=== PATIENT | male | born 1970 | race Caucasian/White ===

== ENCOUNTER → 2020-10-15 11:55 | Outpatient (BNVA) | payer OTHER, SELFPAY | PROVIDERS: PCP Hospitalist; Visit Provider Nurse Practitioner Family | DX: I48.0 Paroxysmal atrial fibrillation (principal); R06.83 Snoring; I10 Essential (primary) hypertension; G47.30 Sleep apnea, unspecified; F17.200 Nicotine dependence, unspecified, uncomplicated; Z79.899 Other long term (current) drug therapy; Z71.6 Tobacco abuse counseling | CPT/HCPCS: 93005; 99212 ==

== ENCOUNTER → 2020-11-17 | Outpatient (REF) | payer OTHER, SELFPAY ==
--- NOTE | 2020-11-17 11:08 | CA_ITS ---
Acquisition Time: 2020-11-17 11:33:50 Total Exercise Time: 00:10:12 Test Indications: CP, AFIB, HTN Medications: SEE CHART Protocol: TAI Max HR: 162 BPM 94% of Pred: 171 BPM Max BP: 161/086 mmHG Max Work Load: 12.2 METS Exercise stress ECHO total of 10 min 12 sec. Pt tolerated well, denies any anginal sx. METS 12.20 and TAPHR up to 94 %. EKG without arrhythmias, no ischemic changes seen during exercise or in recovery. ECHO images taken at rest and immediately after peak exercise TAPHR achieved. Normotensive response to exercise. Test reviewed with Dr. Nicholson. Referred By: Yuridia Blood Overread By: Mckenzie Loo NP
== END ==
LOC: HO.SL
PROVIDERS: Visit Provider Nurse Practitioner Family
DX: I10 Essential (primary) hypertension (principal); I48.20 Chronic atrial fibrillation, unspecified; R06.83 Snoring; M17.0 Bilateral primary osteoarthritis of knee
CPT/HCPCS: 93350; 95806; Q9957

== ENCOUNTER → 2020-12-17 11:08 | Outpatient (REF) | payer OTHER, SELFPAY ==
--- NOTE | 2020-12-17 11:11 | CA_ITS ---
Acquisition Time: 2020-12-17 11:13:02 Total Exercise Time: 00:10:40 Test Indications: PALPITATIONS Medications: SEE CHART Protocol: TAI Max HR: 171 BPM 100% of Pred: 171 BPM Max BP: 158/084 mmHG Max Work Load: 12.8 METS Exerc ise stress ECHO using Tai protocol, total of 10 min 40 sec. METS 12.80 and TAPHR up to 100 %. Pt tolerated well, denies any anginal sx. EKG with no arrhythmias, no ischemic changes seen during exercise or in recovery. ECHO images taken at rest and immediately at peak HR achieved. Definity contrast used. Normotensive response to exercise. Test reviewed with Dr. Nicholson. Referred By: Yuridia Blood Overread By: Mckenzie Loo NP
== END ==
LOC: HO.CARD 11:08
PROVIDERS: Visit Provider Nurse Practitioner Family
DX: I48.0 Paroxysmal atrial fibrillation (principal)
CPT/HCPCS: 93350; Q9957

== ENCOUNTER → 2021-01-25 11:34 | Outpatient (BNVA) | payer OTHER, SELFPAY | PROVIDERS: PCP Hospitalist; Visit Provider Physician Assistant | DX: K58.9 Irritable bowel syndrome, unspecified (principal); R10.9 Unspecified abdominal pain | CPT/HCPCS: 99202 ==

== ENCOUNTER 2021-05-29 17:14 | Emergency (ER) | payer OTHER, SELFPAY ==
--- NOTE | ~2021-05-29 | XR_ITS ---
EXAMINATION: XR CHEST CLINICAL INFORMATION: Chest pain COMPARISON: 09/03/2019 TECHNIQUE: Frontal view of the chest was obtained. FINDINGS: No significant abnormality is noted involving the heart, lungs, mediastinum, bony thorax or soft tissues. XR/XR chest 1V IMPRESSION: Unremarkable examination.
--- NOTE | 2021-05-29 17:53 | ED.ARRPALP ---
HPI - Arrhythmia/Palpitations General Chief Complaint: Arrhythmia/Palpitations Stated Complaint: Palpitations Time Seen by Provider: 05/29/21 17:53 Source: patient Mode of arrival: ambulatory Limitations: no limitations History of Present Illness HPI narrative: Patient with history of hypertension, ADHD, paroxysmal atrial fibrillation, with history of alcohol abuse comes here for episode of palpitations since 07:00 with dizziness slight chest discomfort blurry vision during episodes of palpitation no shortness of breath no nausea no vomiting patient is on metoprolol 25 mg twice daily, stressed out at home had a verbal argument with his partner today Related Data Previous Rx's Medication Instructions Recorded metoprolol tartrate 25 mg tablet 25 mg PO BID #180 tab 01/04/21 ibuprofen 800 mg tablet 800 mg PO Q8H PRN #90 tab 01/15/21 bisacodyl 5 mg tablet,delayed 10 mg PO ONCE 1 Days #2 tab 01/25/21 release (Dulcolax (bisacodyl)) omeprazole 20 mg capsule,delayed 20 mg PO DAILY #30 cap 01/25/21 release polyethylene glycol 3350 17 238 g PO ONCE 1 Days #238 g 01/25/21 gram/dose oral powder (Miralax) omeprazole 40 mg capsule,delayed 40 mg PO DAILY #30 cap 05/19/21 release Allergies Allergy/AdvReac Type Severity Reaction Status Date / Time No Known Allergies Allergy Verified 01/25/21 11:41 Review of Systems Review of Systems: Yes all other systems are reviewed and are negative COUNT INCLUDES THE [facility] Past Medical History Medical History Abdominal pain ADHD (attention deficit hyperactivity disorder), predominantly hyperactive impulsive type Hypertension, essential Knee abrasion Paroxysmal A-fib Surgical History No pertinent past surgical history Family History Family History Father Medical history unknown Mother Alcoholism Pneumonia Sister No problems noted. 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 Oriented X3. No acute distress. Slightly anxious Eyes: No pallor or icterus ENT: Pharynx normal. Oral Mucosa moist Neck: Normal inspection. Neck supple. CVS: Irregularly irregular heart rate no murmur /gallop Pulses normal. Respiratory: No respiratory distress. Equal air entry bilateral, no wheezing/rales/rhonchi Abdomen: Soft and nontender. Bowel sounds are present, no mass palpable, Skin: Skin warm and dry. Normal skin color. Normal skin turgor. Extremities: No lower extremity edema. No calf tenderness Neuro: Oriented X 3. No motor deficit. Course Reevaluation(s) Reevaluation #1: Patient converted to normal sinus rhythm without giving the 2nd dose of flecainide. Was given only 150 mg of flecainide initially case discussed cardiology Dr. Bharat sandy to discharge patient home advised to follow-up as outpatient Time: 22:25 MDM - Arrhythmia/Palpitations MDM Narrative Medical decision making narrative: Patient will own atrial fibrillation responded to flecainide 150 mg converted to normal sinus rhythm case discussed with patient's wide load escort advised to follow up as outpatient Medical Records Attestation: I reviewed the patient's medical records. Lab Data Attestation: I reviewed the patient's lab results. Result diagrams: 05/29/21 18:42 05/29/21 18:42 Labs: Lab Results 05/29/21 05/29/21 05/29/21 Range/Units 18:42 18:42 18:42 WBC 9.8 (4.8-10.8) X10*3/uL RBC 5.06 (4.60-5.80) X10*6/uL Hgb 15.6 (14.0-18.0) g/dl Hct 45.5 (42-52) % MCV 89.9 (80-98) fL MCH 30.8 (27.0-33.0) pg MCHC 34.3 (31.0-36.0) g/dl RDW 13.2 (11.0-16.0) % Plt Count 216 (160-400) X10*3/uL MPV 10.2 (9.4-12.4) fL Immature Gran % (Auto) 0.5 H (0.0-0.4) % Neut % (Auto) 62.4 (45-73) % Lymph % (Auto) 24.1 (20-40) % [place] % (Auto) 10.4 (2-11) % Eos % (Auto) 2.0 (0-4) % Baso % (Auto) 0.6 (0-2) % Lymph # (Auto) 2.4 (1.2-4.9) X10*3/uL [place] # (Auto) 1.0 (0.1-1.2) X10*3/uL Eos # (Auto) 0.2 (0.0-0.4) X10*3/uL Baso # (Auto) 0.1 (0.0-0.2) X10*3/uL Abs Immat Gran (auto) 0.05 H (0.00-0.03) X10*3/uL Absolute Neuts (auto) 6.1 (2.0-8.3) X10*3/uL Absolute Nucleated RBC 0.000 (0.0-0.012) X10*3/uL Nucleated RBC % (auto) 0.0 (0.0-0.2) /100WBC Sodium 143 (135-145) mmol/L Potassium 4.1 (3.3-5.1) mmol/L Chloride 113 H (96-108) mmol/L Carbon Dioxide 24 (22-29) mmol/L Anion Gap 10 L (12-20) BUN 17 H (9-16) mg/dL Creatinine 0.82 (0.5-1.4) mg/dL Estim Creat Clear Calc 118.2 Estimated GFR > 60 Random Glucose 106 (60-115) mg/dL Calcium 8.5 (8.4-10.2) mg/dL Magnesium 2.2 (1.6-2.6) mg/dL Total Bilirubin 0.5 (0.0-1.0) mg/dL AST 33 (5-37) U/L ALT 39 (0-40) U/L Alkaline Phosphatase 73 (39-117) U/L Troponin I High Sens 6.2 (<3.5-35.0) ng/L B-Natriuretic Peptide 94 (<100) pg/mL Total Protein 5.9 L (6.5-8.0) g/dL Albumin 3.6 (3.5-5.0) g/dL ECG Data Attestation: I personally reviewed and interpreted this ECG as follows: Interpretation: Atrial fibrillation with heart rate 130 beats per minute no acute ST T wave changes no acute ischemia Critical Care Time Critical Care Time Critical Care Time: Yes Total Critical Care Time: 35 Attestation: I spent 35 minutes of critical care, with interventions, assessments, speaking to patient, consultants, and family. Discharge Plan Discharge Clinical Impression: Paroxysmal A-fib Patient Disposition: Home, Self-Care Instructions: A-fib (Atrial Fibrillation) (ED) Additional Instructions: Continue metoprolol daily Start taking baby aspirin daily Avoid caffeine drinks Follow up with your wide load escort next week Prescriptions: No Action metoprolol tartrate 25 mg tablet 25 mg PO BID Qty: 180 RF: 1 ibuprofen 800 mg tablet 800 mg PO Q8H PRN (Reason: for pain) Qty: 90 RF: 5 omeprazole 40 mg capsule,delayed release(DR/EC) 40 mg PO DAILY Qty: 30 RF: 1 bisacodyl [Dulcolax (bisacodyl)] 5 mg tablet,delayed release (DR/EC) 10 mg PO ONCE 1 Days Qty: 2 RF: 0 polyethylene glycol 3350 [Miralax] 17 gram/dose powder 238 g PO ONCE 1 Days Qty: 238 RF: 0 omeprazole 20 mg capsule,delayed release(DR/EC) 20 mg PO DAILY Qty: 30 RF: 5 Interventions: ED Discharge Assessment Last Done: 05/29/21 22:57 Discharge Date/Time: 05/29/21 22:58
[2021-05-29 18:03] VITALS: BP 137/93; PULSE 102; RESP 15; O2SAT 95; BMI 27.1
[2021-05-29 18:48] VITALS: BP 114/60; PULSE 107
[2021-05-29 18:48] LABS: MANUAL DIFF FLAG NO
[2021-05-29] MEDS: Metoprolol Tartrate 5 MG/5 ML VIAL IVPUSH (18:48)
[2021-05-29 18:50] LABS: Basophils Absolute Auto 0.1 X10*3/uL (0.0-0.2); Basophils Percent Auto 0.6 % (0-2); Eosinophils Absolute Auto 0.2 X10*3/uL (0.0-0.4); Hematocrit 45.5 % (42-52); Hemoglobin 15.6 g/dl (14.0-18.0); Imm Gran Abs Auto 0.05 X10*3/uL (0.00-0.03); Imm Gran Pct Auto 0.5 % (0.0-0.4); Lymphocytes Absolute Auto 2.4 X10*3/uL (1.2-4.9); Lymphocytes Percent Auto 24.1 % (20-40); Mean Corpuscular HGB Conc 34.3 g/dl (31.0-36.0); Mean Corpuscular Hemoglobin 30.8 pg (27.0-33.0); Mean Corpuscular Volume 89.9 fL (80-98); Mean Platelet Volume 10.2 fL (9.4-12.4); Monocytes Percent Auto 10.4 % (2-11); Neutrophils Absolute Auto 6.1 X10*3/uL (2.0-8.3); Neutrophils Percent Auto 62.4 % (45-73); Platelet Count 216 X10*3/uL (160-400); Red Blood Count 5.06 X10*6/uL (4.60-5.80); Red Cell Distribution Width 13.2 % (11.0-16.0); White Blood Count 9.8 X10*3/uL (4.8-10.8)
[2021-05-29 19:09] LABS: Alanine Aminotransferase 39 U/L (0-40); Albumin Level 3.6 g/dL (3.5-5.0); Alkaline Phosphatase 73 U/L (39-117); Anion Gap 10 (12-20); Aspartate Amino Transferase 33 U/L (5-37); B Type Natriuretic Peptide 94 pg/mL (<100); Bilirubin Total 0.5 mg/dL (0.0-1.0); Blood Urea Nitrogen 17 mg/dL (9-16); Calcium 8.5 mg/dL (8.4-10.2); Carbon Dioxide 24 mmol/L (22-29); Chloride 113 mmol/L (96-108); Creatinine Clr Calc Pharmacy 118.2; Estimated Glomerular Filt Rate > 60; Glucose Random 106 mg/dL (60-115); Magnesium 2.2 mg/dL (1.6-2.6); Potassium 4.1 mmol/L (3.3-5.1); Sodium 143 mmol/L (135-145); Total Protein 5.9 g/dL (6.5-8.0); Troponin-I High Sensitivity 6.2 ng/L (<3.5-35.0)
[2021-05-29 20:36] VITALS: BP 115/80; PULSE 104
[2021-05-29] MEDS: Flecainide Acetate 50 MG TABLET 150 MG PO (20:36)
[2021-05-29] MEDS: Rivaroxaban 20 MG TABLET PO (20:39)
--- NOTE | 2021-05-29 22:26 | ECG_ITS ---
Test Reason : a-fib Blood Pressure : / mmHG Vent. Rate : 130 BPM Atrial Rate : 000 BPM P-R Int : 000 ms QRS Dur : 090 ms QT Int : 280 ms P-R-T Axes : 000 006 -41 degrees QTc Int : 412 ms Atrial fibrillation with rapid ventricular response ST & T wave abnormality, consider anterolateral ischemia Abnormal ECG No previous ECGs available Referred By: Tino Gibbs Electronically Signed By:YOLA LYON MD
--- NOTE | 2021-05-29 22:46 | PC.NURSE ---
PT CONVERTED TO NSR AFTER 1ST DOSE OF FLECANIDE. PT HAD REPEAT EKG. AND PER MD READY FOR D/C
[2021-05-29 22:57] VITALS: BP 108/68; PULSE 72; RESP 18
== END 2021-05-29 22:58 | disposition home or self-care (01) ==
PROVIDERS: Emergency Provider Internal Medicine; PCP Hospitalist
DX: I48.0 Paroxysmal atrial fibrillation (principal); I10 Essential (primary) hypertension; Z79.899 Other long term (current) drug therapy
CPT/HCPCS: 36415; 71045; 80053; 83735; 83880; 84484; 85025; 93005; 96374; 96375; 99285; 99291

== ENCOUNTER → 2021-06-17 09:07 | Outpatient (BNVA) | payer OTHER, SELFPAY | PROVIDERS: PCP Hospitalist; Referring Provider Hospitalist; Visit Provider Internal Medicine Cardiovascular Disease | DX: I48.0 Paroxysmal atrial fibrillation (principal); I10 Essential (primary) hypertension | CPT/HCPCS: 99212 ==

== ENCOUNTER 2021-10-19 08:41 | Day surgery (SDC) | payer OTHER, SELFPAY ==
[2021-10-19 08:47] VITALS: BMI 35.9
[2021-10-19 08:56] VITALS: BP 123/85; PULSE 67; RESP 16; TEMP 36.5; O2SAT 94
--- NOTE | 2021-10-19 09:05 | P.CONAN_ITS ---
HPI - Anesthesia Eval Consult details Narrative: IBS, Abdominal Pain, Screening [facility] Active Problems Active Problems: All Active Problems (Updated 10/13/21 @ 15:31 by Carmelina Roberts, RN) Arthritis of both knees (Acute) Chronic a-fib (Acute) Sleep apnea, unspecified (Acute) Snoring (Acute) Pes anserinus bursitis of right knee (Acute) Tendinitis of right knee (Acute) Arthritis of both knees (Acute) IBS (irritable bowel syndrome) (Acute) Abdominal pain (Acute) Hypertension, essential (Acute) ADHD (attention deficit hyperactivity disorder), predominantly hyperactive impulsive type (Acute) Paroxysmal A-fib (Acute) Past Medical History Medical History (Updated 10/13/21 @ 15:31 by Carmelina Roberts RN) Abdominal pain ADHD (attention deficit hyperactivity disorder), predominantly hyperactive impulsive type Hypertension, essential Knee abrasion On beta kristie at home TOLU (obstructive sleep apnea) Paroxysmal A-fib Family History Family History (Updated 07/22/21 @ 14:00 by ALEXYS Alanis) Father Medical history unknown Mother Alcoholism Pneumonia Sister No problems noted. Family history of problems with anesthesia: No Surgical History Surgical History (Updated 10/19/21 @ 08:45 by Ingrid Valencia RN) Hx of wisdom tooth extraction No pertinent past surgical history History of Problems with Anesthesia: No Social History Social History Household Members Other:: single, 6 kids Alcohol intake: current Alcohol intake frequency: a few times a month Patient Tobacco Use Status: Current everyday Tobacco user Tobacco use type: Cigarette Cigarettes Per Day: 5 e-Cigarette/Vaping Use: Never Used Use of substances other than those prescribed or required for medical reasons: No Are you DNR?: No Advance Directives: No Advance Directives Information Provided: Yes service: No Current occupational status: employed 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 [employer] Cognitive needs: No Hearing needs: No Vision needs: No Meds Allergies Allergy/AdvReac Type Severity Reaction Status Date / Time No Known Allergies Allergy Verified 10/19/21 08:45 Active Medications: Current Medications Lactated Ringer's (Lr) 1,000 mls @ 50 mls/hr IVCONT .Q20H [facility] Home Medications Medication Instructions Recorded Confirmed Last Taken Type ibuprofen 800 mg tablet 1 tab PO Q8H PRN 10/13/21 10/13/21 Unknown History omeprazole 40 mg capsule,delayed 1 cap PO DAILY 10/13/21 10/13/21 Unknown History release risperidone 1 mg tablet mg PO 10/13/21 Unknown History Exam Exam Date and Time: October 19, [id number] Height,Weight and Vital Signs: Height 6 ft 2 in Weight 127.006 kg Last Vital Signs Temp 97.7 F 10/19/21 08:56 Pulse 67 10/19/21 08:56 Resp 16 10/19/21 08:56 BP 123/85 10/19/21 08:56 Pulse Ox 94 10/19/21 08:56 Airway Mallampati Class: II TM Dist: >3cm Neck ROM: Full Loose/Missing/Broken Teeth: Yes (lower front missing, no loose according to patient) Heart: irreg irreg S1S2 Lungs: cta b/l Assessment and Plan Assessment Anesthesia Assessment: Anesthesia Plan Discussed and Chart Reviewed Final Anesthetic Review Family History of Problems with Anesthesia: No History of Problems with Anesthesia: No NPO: Yes ASA Class: III Final Preanesthetic Review: No Changes in Pt Med Stat, Meds/Allgs Chart Reviewed, Consent Obtained/Reviewed and Anes Risks/Benef Reviewed Patient Risk: Intermediate Procedure Risk: Intermediate Assessment/Block/Sedation in SS: Assess/Block/Sedation-SS Anesthetic Plan Anesthetic Plan: MAC: and Agree w/ Assess. and Plan Disposition: Standard PACU
[2021-10-19] MEDS: Lactated Ringers 1,000 ML 50 ML IVCONT (09:07)
--- NOTE | 2021-10-19 09:41 | P.HPSUR_ITS ---
Pre-Procedural Eval Section A Date of Service: 10/19/21 Section B Chief Complaint: IBS, Abdominal Pain Relevant Family History (Specify if Yes): No Relevant Social History: Tobacco Use (alcohol use) Medical History: Significant History (Abdominal pain ADHD (attention deficit hyperactivity disorder), predominantly hyperactive impulsive type Hypertension, essential Knee abrasion Paroxysmal A-fib) History of Previous Operations: No relevant previous surgery Allergies: Allergies Allergy/AdvReac Type Severity Reaction Status Date / Time No Known Allergies Allergy Verified 10/19/21 08:45 Review of Systems Sugical H&P ROS: Negative: Constitution, Cardiovascular, Respiratory, Neurol ogical, Psychiatric, Hem-Onc, Allergic/Immunologic, Gastrointestinal, Genitourinary, Musculoskeletal, Integumentary, Endocrine and Eyes/Ears/Nose/Throat Exam Surgical H&P Exam: Normal: HEENT, Normal: Heart, Normal: Lungs, Normal: Extremities, Normal: Abdomen, Normal: Skin and Normal: Neurological Plan Diagnosis/Plan: Unchanged I have reviewed the history and physical and performed a pertinent physical examination on my patient. No changes have occurred unless specified.
--- NOTE | 2021-10-19 09:54 | PM.OP ---
Brief Operative Note Date of Service: 10/19/21 Pre-op diagnosis: dyspepsia, altered bowel habits Post-op diagnosis: same Procedure: see op note Surgeon: Sophia Mcpherson MD Anesthesia: MAC Was an Bias Machine Operator Helper used for this Procedure?: No Estimated blood loss (mL): 0 Condition: stable Disposition: PACU
--- NOTE | 2021-10-19 10:03 | P.OP_ITS ---
Operative Note Operative Note Date of Service: 10/19/21 Narrative: Operative Information Procedure Description: EGD, Colonoscopy FLEXIBLE TRANSORAL UPPER GASTROINTESTINAL ENDOSCOPY AND COLONOSCOPY PROCEDURE NOTE UPPER ENDOSCOPY Consent: Indications for the procedure and potential complications of bleeding, perforation, reaction to medications and missed diagnosis were discussed with the patient and informed consent was obtained. Instrument: Olympus GIF H 190 J mid size upper endoscope Monitoring: Vital signs and clinical assessment, continuous EKG monitoring, Pulse oximetry, Carbon Dioxide monitoring and blood pressure monitoring were done throughout the procedure. Procedure: The patient was placed in the left lateral decubitis position and pre-procedure medications were administered and a bite block was placed. The endoscope was inserted into the mouth and advanced under direct vision to the third part of duodenum. A careful inspection was made as the upper endoscope was withdrawn including a retroflexed examination of the proximal stomach; Findings and interventions are described below. Findings: Larynx:normal Esophagus: GE junction at 43 cm, diaphragm hiatus at 43 cm, mild inflammation valdez cardia side, bx taken Stomach: Several erosions in the antrum,. Biopsies were obtained. Grade 2 flap valve on retroflexed examination of the cardia with midl inflammation of cardia. Duodenum: moderate severe erosive duodenitis of bulb, bx taken Intervention: Biopsies as noted above COLONOSCOPY Instrument: Olympus variable stiffness pediatric scope 190L Colonoscopy Monitoring: Vital signs and clinical assessment, continuous EKG monitoring, Pulse oximetry, Carbon Dioxide monitoring and blood pressure monitoring were done throughout the procedure. Colon withdrawal time was 13 minutes. Procedure: The patient was placed in the left lateral decubitis position and pre-procedure medications were administered. After a digital rectal examination of the ano-rectum, the video colonoscope was inserted into the rectum and advanced through the colon to the cecum/TI. The colonoscope was slowly withdrawn in a retrograde panoramic fashion and the colon mucosa was carefully examined including a retroflexed view of the rectum. Findings and interventions are described below. Procedure Difficulty: easy Findings: Terminal Ileum-mild erythema, bx taken Cecum:normal Ascending Colon: normal, bx taken to r/o microscopic colitis, crohns Transverse Colon -normal Descending Colon:normal, bx taken to r/o microscopic colitis Sigmoid Colon: 10 mm sessile polyp removed with cold snare, adenomatous appearing pit pattern, Kudo pit pattern type IIIL Rectum: Retroflexion with moderate sized internal hemorrhoids, grade I Anorectum - normal Colon preparation: Mondamin Bowel Preparation Scale Right colon; 2 Transverse colon: 2 Left colon; 2 (0 = Unprepared colon segment with mucosa not seen due to solid stool that cannot be cleared. 1 = Portion of mucosa of the colon segment seen, but other areas of the colon segment not well seen due to staining, residual stool and/or opaque liquid. 2 = Minor amount of residual staining, small fragments of stool and/or opaque liquid, but mucosa of colon segment seen well. 3 = Entire mucosa of colon segment seen well with no residual staining, small fragments of stool or opaque liquid) Impression and Post Procedure Diagnosis: Endoscopy Findings: erosive gastritis erosive duodenitis Colonoscopy Findings: polyps internal hemorrhoids diverticular disease Plan: Await Pathology results Repeat Colonoscopy in 5-7 years due to polyp removed or earlier if clinically indicated High fiber diet leaflet avoid straining at stool, epsom salts and sitz bath, anusol supps or cream confirm nsaid history, if h pylori pos then treat smoking cessation Above findings were reviewed with the patient and relevant handouts were provided if indicated.
[2021-10-19 10:32] VITALS: BP 114/65; PULSE 79; RESP 18; TEMP 36.4; O2SAT 98
[2021-10-19 10:47] VITALS: BP 114/65; PULSE 78; RESP 18; TEMP 36.1; O2SAT 97
== END 2021-10-19 11:24 | disposition home or self-care (01) ==
PROVIDERS: PCP Hospitalist; Visit Provider Internal Medicine Gastroenterology
PROC: (CPT 45385; principal; 2021-10-19 09:30)
DX: R19.4 Change in bowel habit (principal); K63.5 Polyp of colon; K52.9 Noninfective gastroenteritis and colitis, unspecified; K64.0 First degree hemorrhoids; K29.50 Unspecified chronic gastritis without bleeding; B96.81 Helicobacter pylori [H. pylori] as the cause of diseases classified elsewhere; K29.80 Duodenitis without bleeding; K44.9 Diaphragmatic hernia without obstruction or gangrene; F90.1 Attention-deficit hyperactivity disorder, predominantly hyperactive type; F41.9 Anxiety disorder, unspecified; I10 Essential (primary) hypertension; G47.33 Obstructive sleep apnea (adult) (pediatric); Z79.1 Long term (current) use of non-steroidal anti-inflammatories (NSAID); Z79.899 Other long term (current) drug therapy; F17.210 Nicotine dependence, cigarettes, uncomplicated; I48.0 Paroxysmal atrial fibrillation
CPT/HCPCS: 45385; 45380; 43239; 88305; 88342

== ENCOUNTER → 2021-11-04 09:32 | Outpatient (BNVA) | payer OTHER, SELFPAY | PROVIDERS: PCP Hospitalist; Referring Provider Hospitalist; Visit Provider Physician Assistant | DX: K64.9 Unspecified hemorrhoids (principal); K57.30 Diverticulosis of large intestine without perforation or abscess without bleeding; K63.5 Polyp of colon; A04.8 Other specified bacterial intestinal infections | CPT/HCPCS: 99212 ==

== ENCOUNTER 2021-12-21 14:02 | Outpatient (REF) | payer OTHER, SELFPAY | END 2021-12-21 14:03 | disposition home or self-care (01) | LOC: HO.LNP 14:02 | PROVIDERS: PCP Hospitalist; Referring Provider Hospitalist; Visit Provider Physician Assistant | DX: A04.8 Other specified bacterial intestinal infections (principal) | CPT/HCPCS: 83013; 99211 ==

== ENCOUNTER 2022-03-05 19:27 | Emergency (ER) | payer OTHER, SELFPAY ==
--- NOTE | 2022-03-05 | ECG_ITS ---
Test Reason : PALPITATIONS Blood Pressure : / mmHG Vent. Rate : 091 BPM Atrial Rate : 091 BPM P-R Int : 178 ms QRS Dur : 100 ms QT Int : 344 ms P-R-T Axes : 046 -13 019 degrees QTc Int : 423 ms Normal sinus rhythm with sinus arrhythmia Possible Left atrial enlargement Borderline ECG When compared with ECG of 29-MAY-2021 22:34, ST no longer elevated in Anterior leads Referred By: Generic ED Physician Electronically Signed By:Cristino Taylor
--- NOTE | ~2022-03-05 | XR_ITS ---
EXAMINATION: XR CHEST CLINICAL INFORMATION: Disoriented COMPARISON: Prior chest radiographs, most recently 05/29/2021 TECHNIQUE: AP and lateral radiographs of the chest FINDINGS: No significant abnormality is noted involving the heart, lungs, mediastinum, bony thorax or soft tissues. XR/XR chest 2V IMPRESSION: Unremarkable examination.
--- NOTE | ~2022-03-05 | CT_ITS ---
EXAMINATION: CT HEAD WITHOUT CONTRAST CLINICAL INFORMATION: Dizziness. Disoriented. Head strike COMPARISON: CT TECHNIQUE: Contiguous axial imaging was performed from the skull base to vertex without intravenous administration of contrast. This CT examination was performed using dose optimization techniques as appropriate, variously including the following: *Automated exposure control *Adjustment of mA and/or kV according to patient size (this includes techniques or standardized protocols for targeted exams where dose is matched to indication/reason for exam; i.e. extremities or head) *Use of iterative reconstruction technique DLP: 669 mGy-cm FINDINGS: There is no evidence of acute intracranial hemorrhage or territorial infarction. No abnormal mass effect or midline shift is seen. [place] to white matter differentiation is well preserved. No extra-axial fluid collections are identified. The ventricles are normal in size. There is no abnormal attenuation within the brain parenchyma. There are calcifications along the falx. The osseous structures and soft tissues are normal. The mastoid air cells and visualized portions of the paranasal sinuses are well aerated. CT/CT head/brain wo con IMPRESSION: No acute intracranial pathology.
[2022-03-05 19:30] VITALS: BP 142/115; PULSE 92; RESP 18; TEMP 36.4; O2SAT 95; BMI 38.5
[2022-03-05 19:56] LABS: MANUAL DIFF FLAG NO
--- NOTE | 2022-03-05 19:57 | ED.CHESTPAIN ---
HPI - Chest Pain General Chief Complaint: Chest Pain <MARQUIS Fonseca Last Filed: 03/05/22 20:55> Stated Complaint: ND? dizzy <MARQUIS Fonseca - Last Filed: 03/05/22 20:55> Time Seen by Provider: 03/05/22 19:57 <MARQUIS Fonseca Last Filed: 03/05/22 20:55> Source: patient <MARQUIS Fonseca Last Filed: 03/05/22 20:55> Mode of arrival: ambulatory <MARQUIS Fonseca Last Filed: 03/05/22 20:55> Limitations: no limitations <MARQUIS Fonseca Last Filed: 03/05/22 20:55> History of Present Illness HPI narrative: Patient is a 52 year old male presenting to the emergency department today with feeling as though his heart is racing and intermittent dizziness. Patient states that today, he was out working on his truck and forgot to take his Metoprolol. Patient states that he has episodes of intermittent dizziness and heart racing. Patient states that he has a history of atrial fibrillation for which he takes Metoprolol and Fleccanide, as needed. Patient denies any abdominal pain, nausea, vomiting, fever, chills, blurry vision, double vision, loss of vision, chest pain, difficulty breathing, shortness of breath, back pain, night sweats, pain with urination, increased urinary frequency, increased urinary urgency, blood in [his/her] urine or stool, syncope or a near syncopal episode, bowel incontinence, bladder incontinence, bowel retention, bladder retention, or any other complaints at this time. <MARQUIS Fonseca Last Filed: 03/05/22 20:55> Prior episodes: Yes <MARQUIS Fonseca Last Filed: 03/05/22 20:55> Pain radiation: none <MARQUIS Fonseca Last Filed: 03/05/22 20:55> Relieving factors: nothing <MARQUIS Fonseca Last Filed: 03/05/22 20:55> Exacerbating factors: nothing <MARQUIS Fonseca Last Filed: 03/05/22 20:55> Treatment prior to arrival: none <MARQUIS Fonseca Last Filed: 03/05/22 20:55> Related Data Home Medications: Previous Rx's Medication Instructions Recorded metoprolol succinate 50 mg 50 mg PO DAILY #90 tabs 06/17/21 tablet,extended release 24 hr metronidazole 500 mg tablet 500 mg PO TID 14 days #42 tabs 10/27/21 pantoprazole 20 mg tablet,delayed 20 mg PO BID 2 weeks #28 tabs 10/27/21 release tetracycline 500 mg capsule 500 mg PO Q6H 14 days #56 caps 10/27/21 bismuth subsalicylate 262 mg 2 tab PO QID 14 days #112 tabs 11/04/21 chewable tablet flecainide 100 mg tablet 200 mg PO ONCE PRN Afib #20 tabs 02/11/22 <MARQUIS Fonseca - Last Filed: 03/05/22 20:55> Allergies/Adverse Reactions: Allergies Allergy/AdvReac Type Severity Reaction Status Date / Time No Known Allergies Allergy Verified 12/21/21 15:02 <MARQUIS Fonseca - Last Filed: 03/05/22 20:55> Review of Systems Constitutional: Constitutional: Reports no additional constitutional complaints, Denies chills, Denies fever(s) and Denies night sweats <MARQUIS Fonseca Last Filed: 03/05/22 20:55> Eyes: Eyes: Reports no additional eye complaints, Denies blurry vision, Denies change in vision, Denies diplopia, Denies eye discharge, Denies loss of vision and Denies eye pain <MARQUIS Fonseca Last Filed: 03/05/22 20:55> ENT: Reports dizziness <MARQUIS Fonseca Last Filed: 03/05/22 20:55> Cardiovascular: Cardiovascular: Reports no additional cardiovascular complaints, Denies chest pain, Denies lightheadedness, Denies Loss of Consciousness, Reports palpitations and Denies dyspnea <MARQUIS Fonseca Last Filed: 03/05/22 20:55> Respiratory: Respiratory: Reports no additional respiratory complaints and Denies dyspnea <MARQUIS Fonseca Last Filed: 03/05/22 20:55> Gastrointestinal: Gastrointestinal: Reports no additional gastrointestinal complaints, Denies abdominal pain, Denies melena, Denies hematochezia, Denies change in bowel habits and Denies change in stool character <MARQUIS Fonseca - Last Filed: 03/05/22 20:55> Genitourinary: Genitourinary: Reports no additional male genitourinary complaints, Denies hematuria, Denies oliguria, Denies difficulty urinating, Denies dysuria, Denies urinary frequency, Denies urinary hesitancy, Denies urinary incontinence and Denies urinary urgency <MARQUIS Fonseca - Last Filed: 03/05/22 20:55> Musculoskeletal: Musculoskeletal: Reports no additional musculoskeletal complaints, Denies numbness and Denies tingling <MARQUIS Fonseca - Last Filed: 03/05/22 20:55> Neurologic: Reports dizziness, Denies loss of vision, Denies numbness and Denies tingling <MARQUIS Fonseca - Last Filed: 03/05/22 20:55> Psychiatric: Psychiatric: Reports no additional psychiatric complaints <MARQUIS Fonseca - Last Filed: 03/05/22 20:55> Endocrine: Endocrine: Reports no additional endocrine complaints and Reports palpitations <MARQUIS Fonseca - Last Filed: 03/05/22 20:55> Hematologic/Lymphatic: Hematologic/Lymphatic: Reports no additional hematologic/lymphatic complaints <MARQUIS Fonseca - Last Filed: 03/05/22 20:55> Allergic/Immunologic: Allergic/Immunologic: Reports no additional allergic/immunologic complaints <MARQUIS Fonseca - Last Filed: 03/05/22 20:55> PMFSH Past Medical History Attestation statement: The following information was validated with the patient. <MARQUIS Fonseca - Last Filed: 03/05/22 20:55> Source: old records reviewed <MARQUIS Fonseca - Last Filed: 03/05/22 20:55> Medical History: Medical History Abdominal pain ADHD (attention deficit hyperactivity disorder), predominantly hyperactive impulsive type Hypertension, essential Knee abrasion On beta kristie at home TOLU (obstructive sleep apnea) Paroxysmal A-fib <MARQUIS Fonseca - Last Filed: 03/05/22 20:55> Surgical History: Surgical History History of esophagogastroduodenoscopy (EGD) Hx of colonoscopy Hx of wisdom tooth extraction No pertinent past surgical history <MARQUIS Fonseca - Last Filed: 03/05/22 20:55> Family History Family History: Family History Father Medical history unknown Mother Alcoholism Pneumonia Sister No problems noted. 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 Cognitive needs: No Hearing needs: No Vision needs: No <MARQUIS Fonseca - Last Filed: 03/05/22 20:55> Physical Exam Vital Signs: Vital Signs: Last Vital Signs Temp 98.2 F 03/05/22 22:13 Pulse 88 03/05/22 22:13 Resp 15 03/05/22 22:13 BP 118/74 03/05/22 22:13 Pulse Ox 96 03/05/22 22:13 O2 Del Method 03/05/22 22:13 BMI result Body Mass Index 38.5 <MARQUIS Fonseca - Last Filed: 03/05/22 20:55> Vital Signs: Last Vital Signs Temp 98.2 F 03/05/22 22:13 Pulse 88 03/05/22 22:13 Resp 15 03/05/22 22:13 BP 118/74 03/05/22 22:13 Pulse Ox 96 03/05/22 22:13 O2 Del Method 03/05/22 22:13 BMI result Body Mass Index 38.5 <Luis Angel Mike MD - Last Filed: 03/05/22 23:43> Const: General: cooperative, no acute distress, alert and awake <MARQUIS Fonseca - Last Filed: 03/05/22 20:55> Nutritional Appearance: well nourished <Bernadette Solimangilmar [place] - Last Filed: 03/05/22 20:55> Orientation/consciousness: patient oriented x3 <Bernadettejames Solimangilmar [place] - Last Filed: 03/05/22 20:55> Limitations: no limitations <Bernadette Solimangilmar [place] - Last Filed: 03/05/22 20:55> HEENT: Head: Yes normal to inspection and Yes atraumatic <Bernadettejames SolimanMARQUIS schafer - Last Filed: 03/05/22 20:55> Ears: hearing grossly normal bilaterally and external ears normal <Bernadette Solimangimlar [place] - Last Filed: 03/05/22 20:55> General nose exam: Normal external nose present, no nasal discharge noted and no epistaxis <Bernadettejames Solimangilmar [place] - Last Filed: 03/05/22 20:55> Face and sinus: Yes normal facial exam, No abrasion and No laceration <Bernadettejames Solimangilmar [place] - Last Filed: 03/05/22 20:55> Mouth: Normal oral and palatal mucosa present, no drooling and no muffled voice <Bernadettejames Solimangilmar [place] - Last Filed: 03/05/22 20:55> Eyes: General: appearance normal, both eyes and all related structures <Bernadette Latha [place] - Last Filed: 03/05/22 20:55> Periorbital: periorbital findings normal <Bernadette Solimangilmar [place] - Last Filed: 03/05/22 20:55> Eyelids: Yes eyelids normal <Bernadette Latha [place] - Last Filed: 03/05/22 20:55> Conjunctivae: conjunctivae normal <Bernadette Latha [place] - Last Filed: 03/05/22 20:55> Pupils: Equal, round and reactive pupils present <Bernadette Solimangilmar [place] - Last Filed: 03/05/22 20:55> EOM: EOMs intact bilaterally <Bernadette Azul [place] - Last Filed: 03/05/22 20:55> Neck: Neck: Yes normal visual inspection, Yes full ROM and Yes no lymphadenopathy <MARQUIS Fonseca - Last Filed: 03/05/22 20:55> Chest: Chest palpation & inspection: normal inspection of the chest <MARQUIS Fonseca - Last Filed: 03/05/22 20:55> Resp: Effort & Inspection: normal respiratory effort and able to speak in complete sentences <Bernadette AzulMARQUIS - Last Filed: 03/05/22 20:55> Auscultation: clear to auscultation bilaterally <Bernadette AzulMARQUIS - Last Filed: 03/05/22 20:55> Cardio: Rate: regular rate <Bernadette AzulMARQUIS - Last Filed: 03/05/22 20:55> Rhythm: regular rhythm <Bernadette AzulMARQUIS - Last Filed: 03/05/22 20:55> GI: Inspection: Yes normal to inspection <Bernadette AzulMARQUIS - Last Filed: 03/05/22 20:55> Neuro: General: patient oriented x3 and moves all extremities <Bernadette SolimanMARQUIS schafer - Last Filed: 03/05/22 20:55> Cranial nerves: Yes Equal, round and reactive pupils present <Bernadette AzulMARQUIS - Last Filed: 03/05/22 20:55> Cognition (Neuro): normal cognition <Bernadette Azul PA - Last Filed: 03/05/22 20:55> Motor exam (neuro): 5/5 motor strength present throughout <Bernadette Azul PA - Last Filed: 03/05/22 20:55> Sensory Exam: Normal double simultaneous stimulation for sensation <Bernadette Solimangilmar PA - Last Filed: 03/05/22 20:55> Coordination: [id number] test normal <Bernadette AzulMARQUIS - Last Filed: 03/05/22 20:55> Extrem: General: Yes normal to inspection, Yes full ROM and Yes capillary refill normal <Bernadette Solimangilmar PA - Last Filed: 03/05/22 20:55> Psych: Appearance: grossly normal <Bernadette SolimanMARQUIS schafer - Last Filed: 03/05/22 20:55> Mental Status: mental status grossly normal <Bernadette SolimanMARQUIS schafer - Last Filed: 03/05/22 20:55> Affect: normal affect <Bernadette SolimanMARQUIS schafer - Last Filed: 03/05/22 20:55> Attitude: cooperative <Bernadette SolimanMARQUIS schafer - Last Filed: 03/05/22 20:55> Thought process: Normal thought process present <Bernadettejames Azul PA - Last Filed: 03/05/22 20:55> Thought content: Normal thought content present <Bernadette Azul PA - Last Filed: 03/05/22 20:55> Insight: Good insight present (Psych) <Bernadette Azul PA - Last Filed: 03/05/22 20:55> NIH Stroke Scale Internal: Initial- Upon Arrival <Bernadette Azul PA - Last Filed: 03/05/22 20:55> Time: 19:57 <Bernadette Azul PA - Last Filed: 03/05/22 20:55> Level of Consciousness: Alert <Bernadette Azul PA - Last Filed: 03/05/22 20:55> Level of Consciousness Questions: Answers both questions correctly <Bernadette Azul PA - Last Filed: 03/05/22 20:55> Level of Consciousness Commands: Performs both tasks correctly <Bernadette Azul PA - Last Filed: 03/05/22 20:55> Best Gaze: Normal <Bernadette Azul PA - Last Filed: 03/05/22 20:55> Visual: No visual loss <Bernadette Azul PA - Last Filed: 03/05/22 20:55> Facial Palsy: Normal <Bernadette Azul PA - Last Filed: 03/05/22 20:55> Motor Arm (Right): No drift <Bernadette Azul PA - Last Filed: 03/05/22 20:55> Motor Arm (Left): No drift <Bernadette Azul PA - Last Filed: 03/05/22 20:55> Motor Leg (Right): No drift <Bernadette Azul PA - Last Filed: 03/05/22 20:55> Motor Leg (Left): No drift <Bernadettejames Azul PA - Last Filed: 03/05/22 20:55> Limb Ataxia: Absent <Bernadette Azul PA - Last Filed: 03/05/22 20:55> Sensory: Normal <Bernadette Azul PA - Last Filed: 03/05/22 20:55> Best Language: No aphasia <Bernadette Azul PA - Last Filed: 03/05/22 20:55> Dysarthia: Normal <Bernadette Azul PA - Last Filed: 03/05/22 20:55> Extinction and Inattention: No abnormality <MARQUIS Fonseca - Last Filed: 03/05/22 20:55> Score: 0 <MARQUIS Fonseca - Last Filed: 03/05/22 20:55> 0 <Luis Angel Mike MD - Last Filed: 03/05/22 23:43> Course Course Course Narrative: 2331: I assumed care of this patient from my colleague, physician teachers assistant Mita Stokes 21:00 hours. I did interview and examine the patient. The patient states that on (3 days prior to evaluation) while he was working on a tractor he had a brief episode of left arm numbness that travel to his neck and dizziness. He states that the symptoms lasted for about 8 seconds. He states this morning he felt fine and he went to work on a truck. He states that he was in a very hot garage. There were no motors are engines running in the garage. He states that he was getting up and down and moving back and forth around the truck while he was working. He states that he got into the truck and got up and felt dizzy. He states that he was lightheaded as if he is going to pass out. He then developed palpitations. He states that he has a history of paroxysmal atrial fibrillation and hypertension . He is treated with metoprolol and flecainide as needed for prolonged atrial fibrillation. He did not take his metoprolol today. The patient has an echocardiogram stress test 12/17/2020 which revealed a normal LVEF and normal wall motion. Physical examination: Awake, alert, heart regular rate rhythm normal S1-S2 commercial gout, neuro: cranial nerves intact, finger nose to finger normal, [id number] normal, gait normal Laboratory evaluation: CBC was normal. CMP: Low sodium 132, low bicarb 21, elevated BUN 17, elevated glucose 117. CK elevated 716-most likely secondary to working on his truck. Initial sensitivity troponin I was 9.2, 3 hour repeat was 12.2 (not a significant delta , detectable but not elevated) Radiology evaluation: CT scan of the head negative. At this time, given the patient's negative workup, I suspect the patient's symptoms are related to dehydration from working in a hot garage. It is possible that he may have had brief episode atrial tachycardia and I did discuss this with him. 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 <Luis Angel Mike MD - Last Filed: 03/05/22 23:43> MDM - Chest Pain MDM Narrative Medical decision making narrative: Patient signed out to Dr. Mike. Patient disposition pending lab results and re-evaluation. <MARQUIS Fonseca - Last Filed: 03/05/22 20:55> Medical Records Data Attestation: I reviewed the patient's medical records. <MARQUIS Fonseca - Last Filed: 03/05/22 20:55> Lab Data Attestation: I reviewed the patient's lab results. <MARQUIS Fonseca - Last Filed: 03/05/22 20:55> Result diagrams: : 03/05/22 19:49 03/05/22 19:49 <MARQUIS Fonseca - Last Filed: 03/05/22 20:55> Labs: Lab Results 03/05/22 03/05/22 03/05/22 Range/Units 19:49 19:49 19:49 WBC 11.9 H (4.8-10.8) X10*3/uL RBC 5.43 (4.60-5.80) X10*6/uL Hgb 16.5 (14.0-18.0) g/dl Hct 48.3 (42.0-52.0) % MCV 89.0 (80.0-98.0) fL MCH 30.4 (27.0-33.0) pg MCHC 34.2 (31.0-36.0) g/dl RDW 13.4 (11.0-16.0) % Plt Count 203 (160-400) X10*3/uL MPV 10.3 (9.4-12.4) fL Immature Gran % (Auto) 0.4 (0.0-0.4) % Neut % (Auto) 65.5 (45-73) % Lymph % (Auto) 24.6 (20-40) % [place] % (Auto) 7.8 (2-11) % Eos % (Auto) 1.1 (0-4) % Baso % (Auto) 0.6 (0-2) % Lymph # (Auto) 2.9 (1.2-4.9) X10*3/uL [place] # (Auto) 0.9 (0.1-1.2) X10*3/uL Eos # (Auto) 0.1 (0.0-0.4) X10*3/uL Baso # (Auto) 0.1 (0.0-0.2) X10*3/uL Abs Immat Gran (auto) 0.05 H (0.00-0.03) X10*3/uL Absolute Neuts (auto) 7.8 (2.0-8.3) x10*3/uL Absolute Nucleated RBC 0.000 (0.0-0.012) X10*3/uL Nucleated RBC % (auto) 0.0 (0.0-0.2) /100WBC Sodium 132 L (135-145) mmol/L Potassium 3.5 (3.3-5.1) mmol/L Chloride 106 (96-108) mmol/L Carbon Dioxide 21 L (22-29) mmol/L Anion Gap 9 L (12-20) BUN 17 H (9-16) mg/dL Creatinine 1.01 (0.5-1.4) mg/dL Estim Creat Clear Calc 126.9 Estimated GFR > 60 Random Glucose 117 H (60-115) mg/dL Calcium 8.7 (8.4-10.2) mg/dL Magnesium 2.1 (1.6-2.6) mg/dL Total Bilirubin 0.8 (0.0-1.0) mg/dL AST 35 (5-37) U/L ALT 43 H (0-40) U/L Alkaline Phosphatase 72 (39-117) U/L Total Creatine Kinase 760 H (38-174) U/L Troponin I High Sens 9.2 (<3.5-35.0) ng/L Total Protein 6.8 (6.5-8.0) g/dL Albumin 4.1 (3.5-5.0) g/dL 03/05/22 Range/Units 22:26 WBC (4.8-10.8) X10*3/uL RBC (4.60-5.80) X10*6/uL Hgb (14.0-18.0) g/dl Hct (42.0-52.0) % MCV (80.0-98.0) fL MCH (27.0-33.0) pg MCHC (31.0-36.0) g/dl RDW (11.0-16.0) % Plt Count (160-400) X10*3/uL MPV (9.4-12.4) fL Immature Gran % (Auto) (0.0-0.4) % Neut % (Auto) (45-73) % Lymph % (Auto) (20-40) % [place] % (Auto) (2-11) % Eos % (Auto) (0-4) % Baso % (Auto) (0-2) % Lymph # (Auto) (1.2-4.9) X10*3/uL [place] # (Auto) (0.1-1.2) X10*3/uL Eos # (Auto) (0.0-0.4) X10*3/uL Baso # (Auto) (0.0-0.2) X10*3/uL Abs Immat Gran (auto) (0.00-0.03) X10*3/uL Absolute Neuts (auto) (2.0-8.3) x10*3/uL Absolute Nucleated RBC (0.0-0.012) X10*3/uL Nucleated RBC % (auto) (0.0-0.2) /100WBC Sodium (135-145) mmol/L Potassium (3.3-5.1) mmol/L Chloride (96-108) mmol/L Carbon Dioxide (22-29) mmol/L Anion Gap (12-20) BUN (9-16) mg/dL Creatinine (0.5-1.4) mg/dL Estim Creat Clear Calc Estimated GFR Random Glucose (60-115) mg/dL Calcium (8.4-10.2) mg/dL Magnesium (1.6-2.6) mg/dL Total Bilirubin (0.0-1.0) mg/dL AST (5-37) U/L ALT (0-40) U/L Alkaline Phosphatase (39-117) U/L Total Creatine Kinase (38-174) U/L Troponin I High Sens 12.3 (<3.5-35.0) ng/L Total Protein (6.5-8.0) g/dL Albumin (3.5-5.0) g/dL <MARQUIS Fonseca - Last Filed: 03/05/22 20:55> Lab Results 03/05/22 03/05/22 03/05/22 Range/Units 19:49 19:49 19:49 WBC 11.9 H (4.8-10.8) X10*3/uL RBC 5.43 (4.60-5.80) X10*6/uL Hgb 16.5 (14.0-18.0) g/dl Hct 48.3 (42.0-52.0) % MCV 89.0 (80.0-98.0) fL MCH 30.4 (27.0-33.0) pg MCHC 34.2 (31.0-36.0) g/dl RDW 13.4 (11.0-16.0) % Plt Count 203 (160-400) X10*3/uL MPV 10.3 (9.4-12.4) fL Immature Gran % (Auto) 0.4 (0.0-0.4) % Neut % (Auto) 65.5 (45-73) % Lymph % (Auto) 24.6 (20-40) % [place] % (Auto) 7.8 (2-11) % Eos % (Auto) 1.1 (0-4) % Baso % (Auto) 0.6 (0-2) % Lymph # (Auto) 2.9 (1.2-4.9) X10*3/uL [place] # (Auto) 0.9 (0.1-1.2) X10*3/uL Eos # (Auto) 0.1 (0.0-0.4) X10*3/uL Baso # (Auto) 0.1 (0.0-0.2) X10*3/uL Abs Immat Gran (auto) 0.05 H (0.00-0.03) X10*3/uL Absolute Neuts (auto) 7.8 (2.0-8.3) x10*3/uL Absolute Nucleated RBC 0.000 (0.0-0.012) X10*3/uL Nucleated RBC % (auto) 0.0 (0.0-0.2) /100WBC Sodium 132 L (135-145) mmol/L Potassium 3.5 (3.3-5.1) mmol/L Chloride 106 (96-108) mmol/L Carbon Dioxide 21 L (22-29) mmol/L Anion Gap 9 L (12-20) BUN 17 H (9-16) mg/dL Creatinine 1.01 (0.5-1.4) mg/dL Estim Creat Clear Calc 126.9 Estimated GFR > 60 Random Glucose 117 H (60-115) mg/dL Calcium 8.7 (8.4-10.2) mg/dL Magnesium 2.1 (1.6-2.6) mg/dL Total Bilirubin 0.8 (0.0-1.0) mg/dL AST 35 (5-37) U/L ALT 43 H (0-40) U/L Alkaline Phosphatase 72 (39-117) U/L Total Creatine Kinase 760 H (38-174) U/L Troponin I High Sens 9.2 (<3.5-35.0) ng/L Total Protein 6.8 (6.5-8.0) g/dL Albumin 4.1 (3.5-5.0) g/dL 03/05/22 Range/Units 22:26 WBC (4.8-10.8) X10*3/uL RBC (4.60-5.80) X10*6/uL Hgb (14.0-18.0) g/dl Hct (42.0-52.0) % MCV (80.0-98.0) fL MCH (27.0-33.0) pg MCHC (31.0-36.0) g/dl RDW (11.0-16.0) % Plt Count (160-400) X10*3/uL MPV (9.4-12.4) fL Immature Gran % (Auto) (0.0-0.4) % Neut % (Auto) (45-73) % Lymph % (Auto) (20-40) % [place] % (Auto) (2-11) % Eos % (Auto) (0-4) % Baso % (Auto) (0-2) % Lymph # (Auto) (1.2-4.9) X10*3/uL [place] # (Auto) (0.1-1.2) X10*3/uL Eos # (Auto) (0.0-0.4) X10*3/uL Baso # (Auto) (0.0-0.2) X10*3/uL Abs Immat Gran (auto) (0.00-0.03) X10*3/uL Absolute Neuts (auto) (2.0-8.3) x10*3/uL Absolute Nucleated RBC (0.0-0.012) X10*3/uL Nucleated RBC % (auto) (0.0-0.2) /100WBC Sodium (135-145) mmol/L Potassium (3.3-5.1) mmol/L Chloride (96-108) mmol/L Carbon Dioxide (22-29) mmol/L Anion Gap (12-20) BUN (9-16) mg/dL Creatinine (0.5-1.4) mg/dL Estim Creat Clear Calc Estimated GFR Random Glucose (60-115) mg/dL Calcium (8.4-10.2) mg/dL Magnesium (1.6-2.6) mg/dL Total Bilirubin (0.0-1.0) mg/dL AST (5-37) U/L ALT (0-40) U/L Alkaline Phosphatase (39-117) U/L Total Creatine Kinase (38-174) U/L Troponin I High Sens 12.3 (<3.5-35.0) ng/L Total Protein (6.5-8.0) g/dL Albumin (3.5-5.0) g/dL <Luis Angel Mike MD - Last Filed: 03/05/22 23:43> Imaging Data CT scan - head: Attestation: I personally reviewed and interpreted this imaging study as follows: <MARQUIS Fonseca - Last Filed: 03/05/22 20:55> My impression: No acute process. <MARQUIS Fonseca - Last Filed: 03/05/22 20:55> Radiologist's impression: EXAMINATION: CT HEAD WITHOUT CONTRAST CLINICAL INFORMATION: Dizziness. Disoriented. Head strike COMPARISON: CT TECHNIQUE: Contiguous axial imaging was performed from the skull base to vertex without intravenous administration of contrast. This CT examination was performed using dose optimization techniques as appropriate, variously including the following: *Automated exposure control *Adjustment of mA and/or kV according to patient size (this includes techniques or standardized protocols for targeted exams where dose is matched to indication/reason for exam; i.e. extremities or head) *Use of iterative reconstruction technique DLP: 669 mGy-cm FINDINGS: There is no evidence of acute intracranial hemorrhage or territorial infarction. No abnormal mass effect or midline shift is seen. [place] to white matter differentiation is well preserved. No extra-axial fluid collections are identified. The ventricles are normal in size. There is no abnormal attenuation within the brain parenchyma. There are calcifications along the falx. The osseous structures and soft tissues are normal. The mastoid air cells and visualized portions of the paranasal sinuses are well aerated. ? CT/CT head/brain wo con IMPRESSION: No acute intracranial pathology. Dictated By: Fer Murrell MD Signed By: Electronically signed by Fer Murrell MD 03/05/222031 <MARQUIS Fonseca - Last Filed: 03/05/22 20:55> Chest x-ray: Attestation: I personally reviewed and interpreted this imaging study as follows: <MARQUIS Fonseca - Last Filed: 03/05/22 20:55> My impression: No acute process. <MARQUIS Fonseca - Last Filed: 03/05/22 20:55> Radiologist's impression: EXAMINATION: XR CHEST CLINICAL INFORMATION: Disoriented COMPARISON: Prior chest radiographs, most recently 05/29/2021 TECHNIQUE: AP and lateral radiographs of the chest FINDINGS: No significant abnormality is noted involving the heart, lungs, mediastinum, bony thorax or soft tissues. XR/XR chest 2V IMPRESSION: Unremarkable examination. Dictated By: Fer Murrell MD Signed By: Electronically signed by Fer Murrell MD 03/05/222020 <MARQUIS Fonseca - Last Filed: 03/05/22 20:55> ECG Data ECG #1: Attestation: I personally reviewed and interpreted this ECG as follows: <MARQUIS Fonseca - Last Filed: 03/05/22 20:55> ECG interpretation date: 03/05/22 <MARQUIS Fonseca - Last Filed: 03/05/22 20:55> ECG interpretation time: 19:39 <MARQUIS Fonseca - Last Filed: 03/05/22 20:55> Prior ECG tracings: available for review <MARQUIS Fonseca - Last Filed: 03/05/22 20:55> Interpretation: Vent. Rate: 91 BPM ? ? Atrial Rate: 091 BPM P-R Int:178 ms? QRS Dur: 100 ms QT Int: 344 ms ? ? ? P-R-T Axes: 46 -13 19 degrees QTc Int : 423 ms Normal sinus rhythm with sinus arrhythmia Possible left atrial enlargement Borderline ECG 03/05/221938 <MARQUIS Fonseca - Last Filed: 03/05/22 20:55> Discharge Plan Discharge Clinical Impression: Acute dehydration, Heart palpitations <MARQUIS Fonseca - Last Filed: 03/05/22 20:55> Patient Disposition: Home, Self-Care <MARQUIS Fonseca - Last Filed: 03/05/22 20:55> Instructions: Dehydration (ED), Heart Palpitations (ED) <MARQUIS Fonseca - Last Filed: 03/05/22 20:55> Additional Instructions: Your laboratory evaluation was normal. Your 1st high sensitivity troponin I (marker of heart damage/heart attack) was normal at 9.2 and your repeat 3 hour value was also normal at 12.2 (less than 30 is normal). This is reassuring and suggests that you did not have a heart attack today. The CT scan of your brain was normal with no evidence of stroke or bleeding in the brain which is also reassuring. Your symptoms are most likely caused by dehydration from working in the hot garage. It is possible that you may have had brief episodes of atrial fibrillation as well. You should take you metoprolol daily. 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 You should avoid caffeine and alcohol since this can precipitate episodes of atrial fibrillation Follow-up with your doctor in 2 days. Please return to the emergency department if your symptoms get worse or if you develop any symptoms that are concerning to you. <MARQUIS Fonseca - Last Filed: 03/05/22 20:55> Prescriptions: No Action tetracycline 500 mg capsule 500 mg PO Q6H 14 Days Qty: 56 0RF metronidazole 500 mg tablet 500 mg PO TID 14 Days Qty: 42 0RF pantoprazole 20 mg tablet,delayed release (DR/EC) 20 mg PO BID 14 Days Qty: 28 0RF flecainide 100 mg tablet 200 mg PO ONCE PRN (Reason: Afib) Qty: 20 0RF Rx Instructions: Take 2 tablets PRN for Afib metoprolol succinate 50 mg tablet extended release 24 hr 50 mg PO DAILY Qty: 90 3RF bismuth subsalicylate 262 mg tablet,chewable 2 tab PO QID 14 Days Qty: 112 0RF <MARQUIS Fonseca - Last Filed: 03/05/22 20:55> Print Language: Macedonian <MARQUIS Fonseca - Last Filed: 03/05/22 20:55>
[2022-03-05 19:58] LABS: Basophils Absolute Auto 0.1 X10*3/uL (0.0-0.2); Basophils Percent Auto 0.6 % (0-2); Eosinophils Absolute Auto 0.1 X10*3/uL (0.0-0.4); Eosinophils Percent Auto 1.1 % (0-4); Hematocrit 48.3 % (42.0-52.0); Hemoglobin 16.5 g/dl (14.0-18.0); Imm Gran Abs Auto 0.05 X10*3/uL (0.00-0.03); Imm Gran Pct Auto 0.4 % (0.0-0.4); Lymphocytes Absolute Auto 2.9 X10*3/uL (1.2-4.9); Lymphocytes Percent Auto 24.6 % (20-40); Mean Corpuscular HGB Conc 34.2 g/dl (31.0-36.0); Mean Corpuscular Hemoglobin 30.4 pg (27.0-33.0); Mean Platelet Volume 10.3 fL (9.4-12.4); Monocytes Absolute Auto 0.9 X10*3/uL (0.1-1.2); Monocytes Percent Auto 7.8 % (2-11); Neutrophils Absolute Auto 7.8 x10*3/uL (2.0-8.3); Neutrophils Percent Auto 65.5 % (45-73); Platelet Count 203 X10*3/uL (160-400); Red Blood Count 5.43 X10*6/uL (4.60-5.80); Red Cell Distribution Width 13.4 % (11.0-16.0); White Blood Count 11.9 X10*3/uL (4.8-10.8)
[2022-03-05 20:17] LABS: Troponin-I High Sensitivity 9.2 ng/L (<3.5-35.0)
[2022-03-05 20:19] LABS: Alanine Aminotransferase 43 U/L (0-40); Albumin Level 4.1 g/dL (3.5-5.0); Alkaline Phosphatase 72 U/L (39-117); Anion Gap 9 (12-20); Aspartate Amino Transferase 35 U/L (5-37); Bilirubin Total 0.8 mg/dL (0.0-1.0); Blood Urea Nitrogen 17 mg/dL (9-16); Calcium 8.7 mg/dL (8.4-10.2); Carbon Dioxide 21 mmol/L (22-29); Chloride 106 mmol/L (96-108); Creatinine Clr Calc Pharmacy 126.9; Estimated Glomerular Filt Rate > 60; Glucose Random 117 mg/dL (60-115); Potassium 3.5 mmol/L (3.3-5.1); Sodium 132 mmol/L (135-145); Total Protein 6.8 g/dL (6.5-8.0)
[2022-03-05] MEDS: Metoprolol Succinate ER 50 MG TAB.ER.24H PO (20:19)
[2022-03-05] MEDS: 0.9 % Sodium Chloride 1,000 ML 999 ML IV (20:21)
[2022-03-05 20:25] LABS: Magnesium 2.1 mg/dL (1.6-2.6)
[2022-03-05 22:13] VITALS: BP 118/74; PULSE 88; RESP 15; TEMP 36.8; O2SAT 96
[2022-03-05 22:55] LABS: Troponin-I High Sensitivity 12.3 ng/L (<3.5-35.0)
== END 2022-03-06 00:02 | disposition home or self-care (01) ==
PROVIDERS: Physician Assistant Medical; Emergency Provider Emergency Medicine Emergency Medical Services; PCP Hospitalist
DX: E86.0 Dehydration (principal); R00.2 Palpitations; R42 Dizziness and giddiness; I48.0 Paroxysmal atrial fibrillation; I10 Essential (primary) hypertension; F17.210 Nicotine dependence, cigarettes, uncomplicated; Z79.899 Other long term (current) drug therapy
CPT/HCPCS: 36415; 70450; 71046; 80053; 82550; 83735; 84484; 85025; 93005; 96360; 99284

== ENCOUNTER → 2022-05-25 14:14 | Outpatient (BNVA) | payer OTHER, SELFPAY | PROVIDERS: PCP Hospitalist; Referring Provider Hospitalist; Visit Provider Internal Medicine Cardiovascular Disease | DX: I48.0 Paroxysmal atrial fibrillation (principal); I10 Essential (primary) hypertension | CPT/HCPCS: 99212 ==

== ENCOUNTER → 2022-06-23 15:06 | Outpatient (REF) | payer OTHER, SELFPAY ==
--- NOTE | 2022-06-23 15:08 | CA_ITS ---
Transthoracic Echocardiogram Patient (Last, First, Middle): Adam Hillman, Gender: Male Date of : 1970 Age: 52 Procedure Date: 06/23/2022 Procedure Type: Transthoracic Echocardiogram Location: OP Height: 185.42 cm Weight: 133.81 kg BSA: 2.54 m2 Heart Rate: bpm BP: 130 / 86 mmHg Integration Technician: MALIK Referring MD: Cristino Taylor MD Plodder Operator: Cristino Taylor MD Symptoms: I48.0 - Paroxysmal atrial fibrillation Study Quality: Fair, contrast used Conclusions: - Normal left ventricular size, thickness, and systolic function. The visually estimated ejection fraction is between 55-60%. There is no evidence of regional wall motion abnormalities. Diastolic function is normal for age. - Normal right ventricular cavity size and systolic function. - There is mild dilatation of the ascending aorta measuring 3.70 cm. Findings Procedure Information Contrast agent, definity, is being given per protocol without apparent complications. Left Ventricle Normal left ventricular size, thickness, and systolic function. The visually estimated ejection fraction is between 55-60%. There is no evidence of regional wall motion abnormalities. Diastolic function is normal for age. Right Ventricle Normal right ventricular cavity size and systolic function. Atria The left atrium is normal in size. Aortic Valve There is a normal trileaflet aortic valve. There is mild calcification of the aortic valve. There is no aortic valve stenosis. There is no aortic valve regurgitation. Mitral Valve Normal mitral valve structure and function. There is no mitral valve regurgitation. There is no mitral valve stenosis. Pulmonic Valve Normal pulmonic valve structure and function. There is trace pulmonic valve regurgitation. Tricuspid Valve Normal tricuspid valve structure. There is trace tricuspid valve regurgitation. Tricuspid regurgitation envelope is inadequate for calculation of right ventricular systolic pressure. Normal right atrial pressure. Great Vessels There is mild dilatation of the ascending aorta measuring 3.70 cm. The visualized portions of the pulmonary artery and branches are normal. Venous The inferior vena cava is normal in size and collapses greater than 50% with inspiration. Pericardium/Pleural There is no evidence of pericardial effusion. Prior Study Comparison Changes noted compared to prior study dated: 11/06/2019. Mild dilation of ascending aorta 3.7 cm. Measurements 2D Linear Measurements IVSd: 1.09 0.6-0.9/0.6-1.0 cm LVIDd: 4.92 3.9-5.3/4.2-5.9 cm LVIDd Index: 1.94 2.4-3.2/2.2-3.1 cm/m2 LVIDs: 3.51 2.0-3.6 cm LVPWd: 1.03 0.7-1.1 cm LA Diam: 3.60 2.7-3.8/3.0-4.0 cm LAIDs Index: 1.42 1.5-2.3 cm/m2 LV Mass: 239.01 67-162/88-224 g LV Mass Index: 94.10 43-95/49-115 g/m2 LVOT Diam: 2.30 3.0+(-)1.3 cm 2D Systolic Function EF 4C: 57.20 >55% EF 2C: 60.30 >55% EF BiP: 58.30 >55% Mitral Valve MV Pk E: 0.78 MV PK A: 0.49 MV Decel Time: 279.00 E/A: 1.60 E'Lateral: 13.50 E'Medial: 7.18 E/E' Med: 10.90 E/E' Lat: 5.80 PHT: 82.00 MVA PHT: 2.68 Decel [place]: 2.79 Aortic Valve AoV Pk Surya: 1.41 AoV Mn Surya: 0.90 AoV VTI: 0.30 AoV Pk Grad: 8.00 Aov Mn Grad: 4.00 JEAN CARLOS Cont.VTI: 3.84 LVOT LVOT Pk Surya: 1.37 LVOT Mn Surya: 0.83 LVOT VTI: 0.28 LVOT Pk Grad: 8.00 LVOT Mn Grad: 3.00 LVOT Diam: 2.30 LVOT Area: 4.15 Diastolic Function MV Pk E: 0.78 MV Pk A: 0.49 E/A: 1.60 E'Medial: 7.18 E/E' Med: 10.90 E' Laterial: 13.50 E/E' Lat: 5.80 Right Ventricle TAPSE (mm): 26.20 TVS' Surya: 12.70 Tricuspid Valve RA Press: 3.00 Great Vessels Aorta Sinus of Valsalva: 3.46 2.0-3.5 cm Ao Asc: 3.70 2.1-3.4 cm Updated in Other Vendor System with Status of Final Cristino Taylor MD electronically signed on 06/25/2022 1:17:01 PM with status of Final
== END ==
LOC: HO.CARD 15:06
PROVIDERS: Visit Provider Internal Medicine Cardiovascular Disease
DX: I48.0 Paroxysmal atrial fibrillation (principal)
CPT/HCPCS: 93306; Q9957

== ENCOUNTER → 2022-09-05 14:39 | Outpatient (BNVA) | payer OTHER, SELFPAY | PROVIDERS: PCP Hospitalist; Referring Provider Hospitalist; Visit Provider Internal Medicine Cardiovascular Disease | DX: I48.0 Paroxysmal atrial fibrillation (principal); Z79.899 Other long term (current) drug therapy | CPT/HCPCS: 93005; 99212 ==

== ENCOUNTER 2023-01-17 15:27 | Outpatient (REF) | payer OTHER, SELFPAY ==
[2023-01-18 12:02] LABS: Influenza A PCR NEGATIVE (Negative); Influenza B PCR NEGATIVE (Negative); Resp Syncy Virus RNA Qual PCR NEGATIVE (Negative); SARS COV2 PCR INHOUSE NEGATIVE (Negative)
== END 2023-01-17 15:28 | disposition home or self-care (01) ==
LOC: HO.LNP 15:27
PROVIDERS: Visit Provider Nurse Practitioner Family
DX: Z20.822 Contact with and (suspected) exposure to COVID-19 (principal); R09.89 Other specified symptoms and signs involving the circulatory and respiratory systems
CPT/HCPCS: 0241U

== ENCOUNTER 2023-03-29 15:34 | Outpatient (AMB) | payer SELFPAY ==
--- NOTE | 2023-03-29 15:35 | A.OFFVIS_ITS ---
Intake Vital Signs 03/29/23 15:36 Height 6 ft 2 in Weight 302 lb 0.533 oz BMI 38.8 BP 120/80 Blood Pressure Location Lt brachial Position Sitting Pulse 66 Pulse Source Monitor Intake Visit Reasons: 4 month f/up r/s Intake Note: 4 month follow up with EKG. 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 He has background history of paroxysmal atrial fibrillation. He was started on flecainide and metoprolol. He returns and continues to have significant palpitations. We discussed about ablation in the past. He is returning and is asking whether he can undergo ablation. 03/29/23: He returns for follow-up today. On last visit he was referred for EP evaluation. He returns and is saying that he has not received any calls from [facility] for AFib ablation. He continues to take flecainide and metoprolol. He is getting some symptoms with occasional palpitations. He is saying that when he gets palpitations he gets very sweaty and dizzy. He has never passed out but on 1 occasion he got disoriented. He was in [place] was drinking alcohol but did not have any issues but is saying that on 1 occasion he had palpitation and he drank whiskey and the palpitations improved. He continues to monitor himself with the Apple watch and has notice from fast heart rates up to 146 beats per minute. [facility] Medical History Abdominal pain ADHD (attention deficit hyperactivity disorder), predominantly hyperactive impulsive type Hypertension, essential Knee abrasion On beta kristie at home TOLU (obstructive sleep apnea) Paroxysmal A-fib Surgical History History of esophagogastroduodenoscopy (EGD) Hx of colonoscopy Hx of wisdom tooth extraction No pertinent past surgical history Family History Father Medical history unknown Mother Alcoholism Pneumonia Sister No problems noted. 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 Cognitive needs: No Hearing needs: No Vision needs: No Review of Systems Const Denies weakness ENT Denies dizziness Card Denies chest pain, Denies chest pain with activity, Denies syncope, Denies rapid heart rate, Denies pedal edema, Denies edema, Denies leg edema, Denies lightheadedness, Denies palpitations, Denies dyspnea, Denies dyspnea on exertion and Denies orthopnea Resp Denies cough, Denies dyspnea and Denies dyspnea on exertion GI Denies hematochezia and Denies change in stool character Musc Denies abnormal gait, Denies muscle cramps, Denies muscle weakness, Denies numbness, Denies radiating pain into limb and Denies tingling Neuro Denies abnormal gait, Denies dizziness, Denies syncope, Denies numbness, Denies tingling and Denies weakness Endo Denies palpitations Physical Exam Vital Signs: Last Vital Signs Pulse 66 03/29/23 15:36 BP 120/80 03/29/23 15:36 BMI result Body Mass Index 38.8 GENERAL APPEARANCE: in no acute distress, pleasant. NECK: no carotid bruit, no jugular venous distention. SKIN: no suspicious lesions, warm and dry. HEART: no murmurs, regular rate and rhythm. LUNGS: clear to auscultation bilaterally. ABDOMEN: soft, nontender. EXTREMITIES: no edema. PERIPHERAL PULSES: equal. NEUROLOGIC: No gross deficits, AAO X 3 Office Procedures EKG Details: Sinus rhythm 66 beats per minute, normal axis, nonspecific T-wave changes, QTC 402 milliseconds. [id number], Complete Assessment & Plan Assessment & Plan (1) Paroxysmal A-fib: Code(s): I48.0 - Paroxysmal atrial fibrillation Plan [age] year gentleman who is here for follow-up. He has paroxysmal atrial fibrillation. Chads Vasc is 0. He is on flecainide and metoprolol at this point. He continues to get some symptoms off and on palpitations. He also has episodes where he gets sweaty and feels weak. He has noted with Apple watch his heart rates at time are up to 146 beats per minute. He is saying he gets palpitations with fast heart rates. I have recommended to him to do a Holter monitor for 2 weeks to see if he truly is developing atrial fibrillation or there is some other arrhythmia. Continue flecainide and Toprol. He was referred to EP previously for ablation and we will follow-up on that. Thank you for allowing me to participate in the care of your patient. Please feel free to contact me if you have any questions. Orders: Orders ECG 14 day holter monitor Today I48.0 - Paroxysmal atrial fibrillation Medications: Changed From flecainide Must call and schedule cardiology appt 150 mg (1.5 x 100 mg) PO Q12H 30 days 90 tabs 0RF I48.0 - Paroxysmal atrial fibrillation To flecainide 150 mg (1.5 x 100 mg) PO Q12H 120 tabs 3RF I48.0 - Paroxysmal atrial fibrillation Coding Level of Care Code Est Pt Level 4 (64566) Diagnoses Paroxysmal A-fib I48.0 CPT Codes EKG - CPT: 34470-[id number], Complete ([id number])
[2023-03-29 15:36] VITALS: BP 120/80; PULSE 66; BMI 38.8
== END 2023-03-29 16:09 | disposition home or self-care (01) ==
LOC: HO.HCS 15:34
PROVIDERS: PCP Hospitalist; Referring Provider Hospitalist; Visit Provider Internal Medicine Cardiovascular Disease
DX: I48.0 Paroxysmal atrial fibrillation (principal)
CPT/HCPCS: 93010; 99214

== ENCOUNTER → 2023-03-29 15:34 | Outpatient (BNVA) | payer OTHER, SELFPAY | PROVIDERS: PCP Hospitalist; Referring Provider Hospitalist; Visit Provider Internal Medicine Cardiovascular Disease | DX: I48.0 Paroxysmal atrial fibrillation (principal); Z79.899 Other long term (current) drug therapy | CPT/HCPCS: 93005 ==

== ENCOUNTER 2024-03-19 23:10 | Emergency (ER) | payer OTHER, SELFPAY ==
--- NOTE | ~2024-03-19 | US_ITS ---
EXAMINATION: US VENOUS ULTRASOUND WITH DOPPLER LOWER EXTREMITY, RIGHT CLINICAL INFORMATION: Left lower extremity pain, edema and erythema. COMPARISON: None available. TECHNIQUE: Ultrasound of the deep veins is performed from the hip to the calf with compression sonography and color and pulse Doppler assessment. Spectral analysis with color-flow imaging is performed. FINDINGS: There is normal venous compression and respiratory variation and augmented flow. The visualized common femoral vein, superficial femoral vein, profunda femoral vein, popliteal vein, and the trifurcation region shows no evidence of deep venous thrombosis. There is a 1.7 x 0.6 x 1.4 cm popliteal fossa cyst. Prominent groin lymph nodes are noted. If the patient's symptoms persist, followup ultrasound in 5 days 7 days might be of value to exclude proximal propagation from a non-visualized calf vein. US/US venous duplex LE RT IMPRESSION: No DVT demonstrated in the right lower extremity.
[2024-03-19 23:15] VITALS: BP 146/88; PULSE 88; RESP 18; TEMP 36.8; O2SAT 100; BMI 39.6
[2024-03-19 23:37] LABS: MANUAL DIFF FLAG NO
[2024-03-19 23:38] LABS: Basophils Absolute Auto 0.1 X10*3/uL (0.0-0.2); Basophils Percent Auto 0.6 % (0-2); Eosinophils Absolute Auto 0.1 X10*3/uL (0.0-0.4); Eosinophils Percent Auto 0.5 % (0-4); Hematocrit 42.6 % (42.0-52.0); Hemoglobin 14.8 g/dl (14.0-18.0); Imm Gran Abs Auto 0.06 X10*3/uL (0.00-0.03); Imm Gran Pct Auto 0.4 % (0.0-0.4); Lymphocytes Absolute Auto 1.9 X10*3/uL (1.2-4.9); Lymphocytes Percent Auto 11.8 % (20-40); Mean Corpuscular HGB Conc 34.7 g/dl (31.0-36.0); Mean Corpuscular Hemoglobin 31.6 pg (27.0-33.0); Mean Corpuscular Volume 90.8 fL (80.0-98.0); Monocytes Absolute Auto 1.2 X10*3/uL (0.1-1.2); Monocytes Percent Auto 7.3 % (2-11); Neutrophils Absolute Auto 12.6 x10*3/uL (2.0-8.3); Neutrophils Percent Auto 79.4 % (45-73); Platelet Count 187 X10*3/uL (160-400); Red Blood Count 4.69 X10*6/uL (4.60-5.80); Red Cell Distribution Width 13.2 % (11.0-16.0); White Blood Count 15.9 X10*3/uL (4.8-10.8)
[2024-03-19 23:46] LABS: Lactic Acid 0.8 mmol/L (0.5-2.0)
--- NOTE | 2024-03-19 23:46 | ED.EXTPRO ---
HPI - Extremity Problem General Chief complaint: Extremity Injury, Upper Stated complaint: cellulitis on right foot Time Seen by Provider: 03/19/24 23:44 Source: patient and family Mode of arrival: ambulatory Limitations: no limitations History of Present Illness HPI Narrative: Patient is a 54-year-old male with past medical history of ADHD, hypertension, TOLU, paroxysmal atrial fibrillation with history of ablation, metoprolol, flecainide, and Eliquis presenting to emergency department for evaluation of right lower extremity redness pain and swelling. He admits to having a significant sunburn to the lower extremity 1 month ago. Symptoms resolved. However with a past week he has developed increasing redness over the right foot with swelling and pain. Pain is made worse with ambulation and weight-bearing. Over the past couple of days the pain has been extending up the medial aspect of his leg into the thigh, the distal medial thigh has streaks of redness present as well. He denies any dizziness, lightheadedness, chest pain, palpitations, shortness of breath, numbness or tingling of the extremities, known precipitating injury. States he has been compliant with his medications., Related Data Previous Rx's ?Medication ?Instructions ?Recorded cetirizine 10 mg capsule (All Day 10 mg PO DAILY PRN allergy 09/05/22 Allergy (cetirizine)) symptoms #60 caps azelastine 205.5 mcg (0.15 %) 2 spray intranasal BID #30 mL 01/17/23 nasal spray ibuprofen 600 mg tablet 600 mg PO Q6H PRN pain #60 tabs 01/17/23 dextromethorphan HBr 20 mg/15 mL 20 mg (15 mL) PO TID PRN cough 5 02/15/23 oral solution days #118 mL benzonatate 100 mg capsule 100 mg PO BID PRN cough #14 caps 03/21/23 flecainide 100 mg tablet 200 mg (2 x 100 mg) PO Q12H 90 02/26/24 days #180 tabs metoprolol succinate 50 mg 50 mg PO DAILY #90 tabs 03/08/24 tablet,extended release 24 hr cephalexin 500 mg capsule 500 mg PO TID #20 caps 03/20/24 doxycycline hyclate 100 mg capsule 100 mg PO BID #13 caps 03/20/24 Allergies Allergy/AdvReac Type Severity Reaction Status Date / Time No Known Allergies Allergy Verified 03/19/24 23:19 Review of Systems Review of Systems: Yes all other systems are reviewed and are negative [facility] Past Medical History Attestation statement: The following information was validated with the patient. Source: old records reviewed Medical History TOLU (obstructive sleep apnea) On beta kristie at home Abdominal pain Knee abrasion Paroxysmal A-fib ADHD (attention deficit hyperactivity disorder), predominantly hyperactive impulsive type Hypertension, essential Surgical History History of esophagogastroduodenoscopy (EGD) Hx of colonoscopy Hx of wisdom tooth extraction No pertinent past surgical history Family History Family History Father Medical history unknown Mother Alcoholism Pneumonia Sister No problems noted. 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 No acute distress.?Normal affect. Eyes: Pupils equal, round and reactive to light.? ENT: Pharynx normal.?? Neck: Normal inspection.? Neck supple.?? CVS: Heart sounds normal. Normal heart rate and rhythm.? Pulses normal.?? Respiratory: No respiratory distress.? Lung sounds clear to auscultation bilaterally?? Abdomen: Soft and non-tender. Normoactive bowel sounds. Skin: Skin warm and dry.? Normal skin color.? ?? Extremities: No lower extremity edema.? Mild right calf ttp. 2+ pitting edema of the right foot. Notable erythema over the dorsum of the foot along the MCP joints extending towards the mid foot. 2+ DP/PT pulse. Red streaking of the distal medial right thigh. ? Neuro: Moves all extremities spontaneously. Sensation intact bilaterally. Ambulates with normal steady gait. Medical Decision Making Medical Decision Making [facility] Narrative: Patient is a 54-year-old male with past medical history of ADHD, hypertension, TOLU, paroxysmal atrial fibrillation with history of ablation, metoprolol, flecainide, and Eliquis presents for right lower extremity pain swelling and edema. Differential at this time concerning for cellulitis versus DVT versus superficial thrombophlebitis. Venous duplex ultrasound obtained and was negative. Provided with initial course of antibiotics in the emergency department. Differential Diagnosis Differential Diagnoses: The differential diagnosis associated with the presentation includes (See narrative above) Admission/Observation Consideration of admission/observation: Escalation of care including admission/observation considered (See narrative above) Lab Data [facility] Lab Attestation statement: I reviewed the patient's lab results. CBC reveals leukocytosis 16,900 shift. No electrolyte derangement. No GABY. No lactic acidosis. 03/19/24 23:30 03/19/24 23:30 Labs: Lab Results 03/19/24 Range/Units 23:30 WBC 15.9 H (4.8-10.8) X10*3/uL RBC 4.69 (4.60-5.80) X10*6/uL Hgb 14.8 (14.0-18.0) g/dl Hct 42.6 (42.0-52.0) % MCV 90.8 (80.0-98.0) fL MCH 31.6 (27.0-33.0) pg MCHC 34.7 (31.0-36.0) g/dl RDW 13.2 (11.0-16.0) % Plt Count 187 (160-400) X10*3/uL MPV 10.0 (9.4-12.4) fL Immature Gran % (Auto) 0.4 (0.0-0.4) % Neut % (Auto) 79.4 H (45-73) % Lymph % (Auto) 11.8 L (20-40) % Mckinley % (Auto) 7.3 (2-11) % Eos % (Auto) 0.5 (0-4) % Baso % (Auto) 0.6 (0-2) % Lymph # (Auto) 1.9 (1.2-4.9) X10*3/uL [place] # (Auto) 1.2 (0.1-1.2) X10*3/uL Eos # (Auto) 0.1 (0.0-0.4) X10*3/uL Baso # (Auto) 0.1 (0.0-0.2) X10*3/uL Abs Immat Gran (auto) 0.06 H (0.00-0.03) X10*3/uL Absolute Neuts (auto) 12.6 H (2.0-8.3) x10*3/uL Absolute Nucleated RBC 0.000 (0.0-0.012) X10*3/uL Nucleated RBC % (auto) 0.0 (0.0-0.2) /100WBC Sodium 140 (135-145) mmol/L Potassium 3.8 (3.3-5.1) mmol/L Chloride 106 (96-108) mmol/L Carbon Dioxide 23 (22-29) mmol/L Anion Gap 15 (12-20) BUN 17 H (9-16) mg/dL Creatinine 0.92 (0.5-1.4) mg/dL Estim Creat Clear Calc 134.5 Estimated GFR > 60 Random Glucose 127 H (60-115) mg/dL Lactic Acid 0.8 (0.5-2.0) mmol/L Calcium 9.2 (8.4-10.2) mg/dL Total Bilirubin 1.4 H (0.0-1.0) mg/dL AST 31 (5-37) U/L ALT 29 (0-40) U/L Alkaline Phosphatase 77 (39-117) U/L Total Protein 7.2 (6.5-8.0) g/dL Albumin 4.1 (3.5-5.0) g/dL Independent Interpretation I performed an independent interpretation of an: Ultrasound Radiology Impression Discussion of test interpretation with radiology: I have reviewed the radiologist's reading. Independent Historian Clinical information obtained from an independent historian. History obtained from or confirmed by: Spouse External Record Review External record reviewed: Outpatient record Prescription Management I considered prescription management with: Pain Medication (Acetaminophen) and Antibiotic Discharge Plan Discharge Clinical Impression: Cellulitis of right lower extremity Patient Disposition: Home, Self-Care Instructions: Cellulitis (ED) Additional Instructions: Complete the entire course of antibiotics as prescribed. Do not stop taking them early even if you notice improvement in your symptoms or even resolution. On doxycycline, do not take pills immediately before going to bed and swallow pills with plenty of water. Avoid direct sunlight, iron, antacids, and Pepto Bismol. Call your provider if you develop new ringing in your ears, new problems hearing, dizziness, difficulty swallowing, rash, abdominal discomfort, nausea, or diarrhea.? Follow-up with your primary care provider. Return to emergency department any new or worsening symptoms or concerns. Prescriptions: New doxycycline hyclate 100 mg capsule 100 mg PO BID Qty: 13 0RF cephalexin 500 mg capsule 500 mg PO TID Qty: 20 0RF No Action dextromethorphan HBr 20 mg/15 mL solution 20 mg PO TID PRN (Reason: cough ) 5 Days Qty: 118 1RF benzonatate 100 mg capsule 100 mg PO BID PRN (Reason: cough) Qty: 14 0RF flecainide 100 mg tablet 200 mg PO Q12H 90 Days Qty: 180 4RF metoprolol succinate 50 mg tablet extended release 24 hr 50 mg PO DAILY Qty: 90 3RF ibuprofen 600 mg tablet 600 mg PO Q6H PRN (Reason: pain) Qty: 60 1RF azelastine 205.5 mcg (0.15 %) spray,non-aerosol 2 spray intranasal BID Qty: 30 0RF Rx Instructions: administer into each nostril All Day Allergy (cetirizine) 10 mg capsule 10 mg PO DAILY PRN (Reason: allergy symptoms) Qty: 60 3RF Referrals: Physician,Unknown J [Primary Care Provider] - Stand Alone Forms: Work/School Release Print Language: Maltese
[2024-03-19 23:51] LABS: Alanine Aminotransferase 29 U/L (0-40); Albumin Level 4.1 g/dL (3.5-5.0); Alkaline Phosphatase 77 U/L (39-117); Anion Gap 15 (12-20); Aspartate Amino Transferase 31 U/L (5-37); Bilirubin Total 1.4 mg/dL (0.0-1.0); Blood Urea Nitrogen 17 mg/dL (9-16); Calcium 9.2 mg/dL (8.4-10.2); Carbon Dioxide 23 mmol/L (22-29); Chloride 106 mmol/L (96-108); Creatinine Clr Calc Pharmacy 134.5; Estimated Glomerular Filt Rate > 60; Glucose Random 127 mg/dL (60-115); Potassium 3.8 mmol/L (3.3-5.1); Sodium 140 mmol/L (135-145); Total Protein 7.2 g/dL (6.5-8.0)
[2024-03-20 00:14] VITALS: BP 117/73; PULSE 84; RESP 16; TEMP 37.1; O2SAT 96
[2024-03-20 01:25] VITALS: BP 125/81; PULSE 78; RESP 18; TEMP 36.3; O2SAT 93
[2024-03-20] MEDS: Doxycycline Monohydrate 100 MG CAPSULE PO (01:27)
[2024-03-20] MEDS: cephALEXin 500 MG CAPSULE PO (01:27)
[2024-03-20 01:35] VITALS: BP 125/81; PULSE 78; RESP 18; TEMP 36.3; O2SAT 93
== END 2024-03-20 01:36 | disposition home or self-care (01) ==
PROVIDERS: Emergency Provider Emergency Medicine
DX: L03.115 Cellulitis of right lower limb (principal); R60.0 Localized edema; Z79.899 Other long term (current) drug therapy
CPT/HCPCS: 36415; 80053; 83605; 85025; 87040; 93971; 99284

== ENCOUNTER 2025-03-12 17:27 | Emergency (ER) | payer OTHER, SELFPAY ==
--- NOTE | ~2025-03-12 | CT_ITS ---
CLINICAL HISTORY: left lower abdominal pain CT abdomen and pelvis without contrast Comparison: None provided Findings: Steatotic change of the fat deposition of the liver. Mild liver surface nodularity suggested as can be seen with cirrhosis. Mild bibasilar atelectasis. Mild fluid adjacent the pancreas is nonspecific and may reflect mild pancreatitis.. The adrenal glands are normal. Spleen is nonenlarged. Punctate stone and/or calcification of the right kidney favored to be within renal cortex. No obstructing stone in either kidney or either ureter. Mild free fluid in the imaged abdomen is nonspecific may reflect mihaela mesentery. No small bowel obstruction. No enlarged lymphadenopathy by noncontrast CT. Moderate to severe stool burden, including the cecum. Mild wall thickening of the large intestine is nonspecific including imaged sigmoid colon. The appendix is not definitively seen calcified and noncalcified plaque include imaged aorta and its branches. The prostate gland measures 6 cm transverse. Moderate wall thickening of the urinary bladder is nonspecific and may reflect cystitis. Small fat containing ventral hernia. Mild-moderate osteoarthritis of the hips. Degenerative changes also include imaged spine with multifocal facet arthropathy. Left-sided spondylolysis of the L5. Mild vertebral height losses appear old/chronic and accentuated by Schmorl's nodes. IMPRESSION: 1. Mild fluid in the abdomen is nonspecific including adjacent to the pancreas. Differential considerations include mild pancreatitis. 2. No small bowel obstruction. 3. Wall thickening of the urinary bladder. This document has been electronically signed by: Esa Zayas MD on 03/12/2025 20:11:51
[2025-03-12 18:42] VITALS: BP 136/88; PULSE 78; RESP 16; TEMP 36.7; O2SAT 97; BMI 39.5
--- NOTE | 2025-03-12 18:42 | ED_ITS ---
HPI - General Adult General Chief complaint: Abdominal Pain Stated complaint: abd pain Time Seen by Provider: 03/12/25 20:51 Source: patient Limitations: no limitations History of Present Illness ED Provider: Missy Mary PA-C HPI narrative: 55-year-old male with a history of morbid obesity, paroxysmal AFib, hypertension, prior H pylori, ADHD, bipolar disorder, who presents with lower abdominal pain since earlier today. 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 of pain over mid lower abdomen that radiated into his groin. Denies testicular pain or swelling, abdominal distention, inability to pass flatus, constipation, no nausea vomiting. Pain is worse with movement. Related Data Previous Rx's ?Medication ?Instructions ?Recorded cetirizine 10 mg capsule (All Day 10 mg PO DAILY PRN a llergy 09/05/22 Allergy (cetirizine)) symptoms #60 caps azelastine 205.5 mcg (0.15 %) 2 spray intranasal BID # 30 mL 01/17/23 nasal spray ibuprofen 600 mg tablet 600 mg PO Q6H PRN pain #60 t abs 01/17/23 dextromethorphan HBr 20 mg/15 mL 20 mg (15 mL) PO TID PRN cough 5 02/15/23 oral solution days #118 mL benzonatate 100 mg capsule 100 mg PO BID PRN cough #14 caps 03/21/23 flecainide 100 mg tablet 200 mg (2 x 100 mg) PO Q12H 90 02/26/24 days #180 tabs metoprolol succinate 50 mg 50 mg PO DAILY #90 tabs tablet,extended release 24 hr cephalexin 500 mg capsule 500 mg PO TID #20 caps 03/20 doxycycline hyclate 100 mg capsule 100 mg PO BID #13 c aps 03/20/24 Allergies Allergy/AdvReac Type Severity Reaction Status Date / Time No Known Allergies Allergy Verified 03/12/25 18:46 Review of Systems 2 Review of Systems: Yes all other systems are reviewed and are negative Constitutional: Constitutional: Denies fatigue and Denies fever(s) Cardiovascular: Cardiovascular: Denies chest pain and Denies dyspnea Respiratory: Respiratory: Denies dyspnea Gastrointestinal: Gastrointestinal: Reports abdominal pain, Denies bloating, Denies constipation, Denies nausea and Denies vomiting Genitourinary: Genitourinary: Denies scrotal swelling and Denies testicular pain Endocrine: Endocrine: Denies fatigue PMF Past Medical History Attestation statement: The following information was validated with the patient. Medical History TOLU (obstructive sleep apnea) On beta kristie at home Abdominal pain Knee abrasion Paroxysmal A-fib ADHD (attention deficit hyperactivity disorder), predominantly hyperactive impulsive type Hypertension, essential Surgical History History of esophagogastroduodenoscopy (EGD) Hx of colonoscopy Hx of wisdom tooth extraction No pertinent past surgical history Family History Family History Father Medical history unknown Mother Alcoholism Pneumonia Sister No problems noted. 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 [employer] Cognitive needs: No Hearing needs: No Vision needs: No Physical Exam ED Vital Signs: Vital Signs - 24 hr 03/12/25 18:42 03/12/25 20:36 Temperature 98.1 F 97.7 F Pulse Rate 78 76 Respiratory Rate 16 16 Blood Pressure 136/88 135/79 Pulse Oximetry 97 94 Oxygen Delivery Method Room Air Room Air BMI result Body Mass Index 39.5 Const Other: Alert Orientation/consciousness: patient oriented x3 Resp Effort & Inspection: normal respiratory effort Cardio Other: Normal peripheral perfusion GI Other: Abdomen is soft, obese, I can feel a breach in the abdominal wall , no tenderness, no guarding Skin Other: Warm dry no rash Neuro General: patient oriented x3, gait normal, no focal motor deficits and CN's II- XI intact bilaterally Psych Other: Cooperative Course Course Course Narrative: RME, this is a rapid medical exam performed by Osvaldo Salmon please refer to primary provider for complete H&P- 55-year-old male presents for evaluation of left lower abdominal pain pressure. Symptoms started yesterday and have been waxing and waning. Plan for labs urinalysis and CT scan of the abdomen pelvis without contrast Medical Decision Making Medical Decision Making MDM Narrative: 55-year-old male with a history of morbid obesity, paroxysmal AFib, hypertension, prior H pylori, ADHD, bipolar disorder, who presents with lower abdominal pain since earlier today. 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 of pain over mid lower abdomen that radiated into his groin. Denies testicular pain or swelling, abdominal distention, inability to pass flatus, constipation, no nausea vomiting. Pain is worse with movement. Problem: Obesity History: Per patient I have considered the following differential diagnoses: Incarcerated hernia, strangulated hernia, bowel obstruction, torsion Plan: The patient likely has a hernia, I can feel the defect, there was no evidence of incarcerated or strangulated hernia, he has no obstructive symptoms, given his pain I am obtaining a CT scan. Screening labs were already obtained from triage I have independently reviewed the following tests: Labs: No leukocytosis, not anemic, no electrolyte abnormalities noted CT abdomen and pelvis:IMPRESSION: 1. Mild fluid in the abdomen is nonspecific including adjacent to the pancreas. Differential considerations include mild pancreatitis. 2. No small bowel obstruction. 3. Wall thickening of the urinary bladder. Lab Data 03/12/25 18:52 03/12/25 18:52 Labs: Lab Results 03/12/25 03/12/25 Range/Units 18:52 20:49 WBC 8.8 (4.8-10.8) X10*3/uL RBC 4.92 (4.60-5.80) X10*6/uL Hgb 15.4 (14.0-18.0) g/dl Hct 44.1 (42.0-52.0) % MCV 89.6 (80.0-98.0) fL MCH 31.3 (27.0-33.0) pg MCHC 34.9 (31.0-36.0) g/dl RDW 13.4 (11.0-16.0) % Plt Count 205 (160-400) X10*3/uL MPV 10.2 (9.4-12.4) fL Immature Gran % (Auto) 0.9 H (0.0-0.4) % Neut % (Auto) 57.8 (45-73) % Lymph % (Auto) 29.7 (20-40) % [place] % (Auto) 8.9 (2-11) % Eos % (Auto) 1.7 (0-4) % Baso % (Auto) 1.0 (0-2) % Lymph # (Auto) 2.6 (1.2-4.9) X10*3/uL [place] # (Auto) 0.8 (0.1-1.2) X10*3/uL Eos # (Auto) 0.2 (0.0-0.4) X10*3/uL Baso # (Auto) 0.1 (0.0-0.2) X10*3/uL Abs Immat Gran (auto) 0.08 H (0.00-0.03) X10*3/uL Absolute Neuts (auto) 5.1 (2.0-8.3) x10*3/uL Absolute Nucleated RBC 0.000 (0.0-0.012) X10*3/uL Nucleated RBC % (auto) 0.0 (0.0-0.2) /100WBC Sodium 142 (135-145) mmol/L Potassium 4.0 (3.3-5.1) mmol/L Chloride 110 H (96-108) mmol/L Carbon Dioxide 25 (22-29) mmol/L Anion Gap 11 L (12-20) BUN 20 H (9-16) mg/dL Creatinine 0.96 (0.5-1.4) mg/dL Estim Creat Clear Calc 127.2 Estimated GFR > 60 Random Glucose 99 (60-115) mg/dL Calcium 9.1 (8.4-10.2) mg/dL Total Bilirubin 0.8 (0.0-1.0) mg/dL AST 39 H (5-37) U/L ALT 54 H (0-40) U/L Alkaline Phosphatase 61 (39-117) U/L Total Protein 7.1 (6.5-8.0) g/dL Albumin 4.4 (3.5-5.0) g/dL Lipase 21 (8-78) U/L Urine Color Yellow Urine Appearance Clear Urine pH 6.0 (5.0-9.0) Ur Specific Falcon 1.025 (1.005-1.025) Urine Protein Negative (Neg-Trace) mg/dL Urine Glucose (UA) Negative (Negative) mg/dL Urine Ketones Negative (Negative) mg/dL Urine Blood Negative (Negative) Urine Nitrite Negative (Negative) Ur Leukocyte Esterase Negative (Negative) Urine RBC 0-2 (0-2) /HPF Urine WBC 0-5 (0-5) /HPF Ur Squamous Epith Cells 0-2 (0-2) /HPF Urine Bacteria None Seen (None Seen) Hyaline Casts 0-2 (0-2) /LPF Discharge Plan Discharge Clinical Impression: Ventral hernia Patient Disposition: Home, Self-Care Instructions: Ventral Hernia Repair (DC) Additional Instructions: All of your screening labs were normal. You have a break in your abdominal wall called a ventral hernia. I gave you information to read about an regard to what repair would entail. I am providing you with a contact for our surgical service, you can call to schedule an appointment to discuss the elective repair. Prescriptions: No Action dextromethorphan HBr 20 mg/15 mL solution 20 mg PO TID PRN (Reason: cough ) 5 Days Qty: 118 1RF benzonatate 100 mg capsule 100 mg PO BID PRN (Reason: cough) Qty: 14 0RF flecainide 100 mg tablet 200 mg PO Q12H 90 Days Qty: 180 4RF metoprolol succinate 50 mg tablet extended release 24 hr 50 mg PO DAILY Qty: 90 3RF doxycycline hyclate 100 mg capsule 100 mg PO BID Qty: 13 0RF cephalexin 500 mg capsule 500 mg PO TID Qty: 20 0RF ibuprofen 600 mg tablet 600 mg PO Q6H PRN (Reason: pain) Qty: 60 1RF azelastine 205.5 mcg (0.15 %) spray,non-aerosol 2 spray intranasal BID Qty: 30 0RF Rx Instructions: administer into each nostril All Day Allergy (cetirizine) 10 mg capsule 10 mg PO DAILY PRN (Reason: allergy symptoms) Qty: 60 3RF Referrals: Christian Albarran MD [Physician, General Surgery] Referral Note: ventral wall hernia Stand Alone Forms: Work/School Release Interventions: ED Discharge Assessment Last Done: 03/12/25 22:24 Discharge Date/Time: 03/12/25 22:24 Print Language: Barbadian
[2025-03-12 19:01] LABS: MANUAL DIFF FLAG NO
[2025-03-12 19:04] LABS: Hematocrit 44.1 % (42.0-52.0); Hemoglobin 15.4 g/dl (14.0-18.0); Imm Gran Abs Auto 0.08 X10*3/uL (0.00-0.03); Imm Gran Pct Auto 0.9 % (0.0-0.4); Lymphocytes Absolute Auto 2.6 X10*3/uL (1.2-4.9); Mean Corpuscular HGB Conc 34.9 g/dl (31.0-36.0); Mean Corpuscular Hemoglobin 31.3 pg (27.0-33.0); Mean Corpuscular Volume 89.6 fL (80.0-98.0); NRBC Abs Auto 0.000 X10*3/uL (0.0-0.012); NRBC Pct Auto 0.0 /100WBC (0.0-0.2); Platelet Count 205 X10*3/uL (160-400); Red Blood Count 4.92 X10*6/uL (4.60-5.80); White Blood Count 8.8 X10*3/uL (4.8-10.8)
[2025-03-12 19:23] LABS: Alanine Aminotransferase 54 U/L (0-40); Albumin Level 4.4 g/dL (3.5-5.0); Alkaline Phosphatase 61 U/L (39-117); Anion Gap 11 (12-20); Aspartate Amino Transferase 39 U/L (5-37); Blood Urea Nitrogen 20 mg/dL (9-16); Calcium 9.1 mg/dL (8.4-10.2); Carbon Dioxide 25 mmol/L (22-29); Chloride 110 mmol/L (96-108); Creatinine Clr Calc Pharmacy 127.2; Estimated Glomerular Filt Rate > 60; Lipase 21 U/L (8-78); Potassium 4.0 mmol/L (3.3-5.1); Sodium 142 mmol/L (135-145); Total Protein 7.1 g/dL (6.5-8.0)
[2025-03-12 20:36] VITALS: BP 135/79; PULSE 76; RESP 16; TEMP 36.5; O2SAT 94
[2025-03-12 20:56] LABS: Appearance Urine Clear; Glucose Urine UA Negative (Negative); PH 6.0 (5.0-9.0); Specific Gravity - Urine 1.025 (1.005-1.025)
--- NOTE | 2025-03-12 21:06 | PC.NURSE ---
MARQUIS Mary at bedside speaking with patient for initial ED provider assessment.
--- NOTE | 2025-03-12 22:03 | PC.NURSE ---
Patient stated that his dog is freaking out and asking if he is being discharged. No discharge instructions written yet by provider at this time. Lobster message sent to MARQUIS Mary. Pt is ambulating steadily, pleasant/calm/cooperative.
[2025-03-12 22:24] VITALS: BP 135/79; PULSE 76; RESP 16; TEMP 36.5; O2SAT 94
== END 2025-03-12 22:24 | disposition home or self-care (01) ==
PROVIDERS: Physician Assistant; Emergency Provider Emergency Medicine
DX: K43.9 Ventral hernia without obstruction or gangrene (principal); R10.32 Left lower quadrant pain; I48.0 Paroxysmal atrial fibrillation; I10 Essential (primary) hypertension
CPT/HCPCS: 36415; 74176; 80053; 81001; 83690; 85025; 99283; 99284

== ENCOUNTER → 2025-03-12 18:44 | Outpatient (BNV) | payer OTHER, SELFPAY | PROVIDERS: Visit Provider Radiology Neuroradiology | DX: K76.0 Fatty (change of) liver, not elsewhere classified (principal) | CPT/HCPCS: 74176 ==